=== PATIENT | female | born 1970 | race African-American/Black ===

== ENCOUNTER 2017-10-23 08:30 | Inpatient (IN) | payer OTHER ==
[~2017-10-23] VITALS: Ht 172.7 cm; Wt 127.5 kg
[2017-10-23] MEDS ORDERED: LOSARTAN POTASS50 MG ORAL (08:42)
[2017-10-23] MEDS ORDERED: Isovue-370 150ml vial INJ PRN (09:15)
[2017-10-23 09:28] LABS: BASOPHILS % (AUTO) 0.9 % (0.0-2.0); EOSINOPHILS % (AUTO) 0.8 % (0.0-3.0); HEMATOCRIT 36.8 % (37.0-47.0); HEMOGLOBIN 12.4 G/DL (12.0-16.0); LYMPHOCYTES % (AUTO) 16.1 % (20.0-45.0); MEAN CORPUSCULAR VOLUME 85 FL (80-99); MONOCYTES % (AUTO) 8.7 % (1.0-10.0); NEUTROPHILS % (AUTO) 73.5 % (45.0-75.0); PLATELET COUNT 237 K/UL (150-450); RED BLOOD COUNT 4.35 M/UL (4.20-5.40); WHITE BLOOD COUNT 7.6 K/UL (4.8-10.8)
[2017-10-23] MEDS ORDERED: Aspirin Baby 81mg ORAL ONE (09:30)
--- NOTE | 2017-10-23 09:39 | Emergency Room Report ---
History of Present Illness General Chief Complaint: Chest Pain Source: Patient Present Illness HPI Patient is a 47-year-old female who presented after increased chest discomfort as well as difficulty breathing. Patient gradual onset of symptoms over the past 2 days. Patient reports having increased dizziness as well as decreased exercise tolerance. The patient states that she had been put on control pills. Patient denies being smoker. She reported having some previous right- sided lower extremity swelling which had since resolved. The patient denies any vomiting or diarrhea. She denies any fever. Allergies: Coded Allergies: No Known Allergies (Unverified , 10/23/17) Patient History Past Medical History: see triage record Last Menstrual Period: 10/09/17 Now: No Reviewed Nursing Documentation: PMH: Agreed; PSxH: Agreed Nursing Documentation-PMH Hx Hypertension: Yes Review of Systems All Other Systems: negative except mentioned in HPI Physical Exam Vital Signs Date Time Temp Pulse Resp B/P (MAP) Pulse Ox O2 Delivery O2 Flow Rate FiO2 10/23/17 08:40 98.2 121 24 145/84 87 Room Air 98.2 10/23/17 08:45 2.0 Sp02 EP Interpretation: reviewed, normal General Appearance: normal inspection, well appearing, no apparent distress, alert, GCS 15, non-toxic Head: atraumatic ENT: normal ENT inspection, hearing grossly normal, normal voice Neck: normal inspection, full range of motion, supple, no bony tend Respiratory: normal inspection, lungs clear, normal breath sounds, no respiratory distress, no retraction, no wheezing Cardiovascular #1: regular rate, rhythm, no edema Gastrointestinal: normal inspection, normal bowel sounds, non tender, soft, no guarding, no hernia Genitourinary: no CVA tenderness Musculoskeletal: normal inspection, back normal, normal range of motion Neurologic: normal inspection, alert, oriented x3, responsive, conference center coordinator III-XII nml as tested, speech normal Psychiatric: normal inspection, judgement/insight normal, mood/affect normal Skin: normal inspection, normal color, no rash Medical Decision Making Diagnostic Impression: Primary Impression: Pulmonary embolism ER Course patient presented for chest pain.Differential diagnosis included but was not limited to acute coronary syndrome, pulmonary embolism, pneumonia, aortic dissection, shingles, pneumothorax, aortic dissection, esophageal rupture, pericarditis. Given the patient's oral contraceptive use as well as pleuritic- type chest pain patient will be evaluated for pulmonary embolism with CTA. EKG interpreted by me showed sinus tachycardia with a rate of [address] or T wave change. The rhythm strip showed normal sinus rhythm with a rate of 98 without PVCS or ectopy. The patient was given aspirin.The patient was started on heparin drip. A CTA of the chest read by radiology showed bilateral submassive pulmonary embolism. The echocardiogram 2-D the showed normal left ventricular chamber size with ejection fraction 60-65% noted some pericardial or pleural effusion the right cardiac chamber sizes was within normal limitsMina Faulkner was contacted for inpatient management due to complexity of medical condition. Labs Test 10/23/17 09:06 White Blood Count 7.6 K/UL (4.8-10.8) Red Blood Count 4.35 M/UL (4.20-5.40) Hemoglobin 12.4 G/DL (12.0-16.0) Hematocrit 36.8 % (37.0-47.0) Mean Corpuscular Volume 85 FL (80-99) Mean Corpuscular Hemoglobin 28.6 PG (27.0-31.0) Mean Corpuscular Hemoglobin Concent 33.8 G/DL (32.0-36.0) Red Cell Distribution Width 12.0 % (11.6-14.8) Platelet Count 237 K/UL (150-450) Mean Platelet Volume 6.6 FL (6.5-10.1) Neutrophils (%) (Auto) 73.5 % (45.0-75.0) Lymphocytes (%) (Auto) 16.1 % (20.0-45.0) Monocytes (%) (Auto) 8.7 % (1.0-10.0) Eosinophils (%) (Auto) 0.8 % (0.0-3.0) Basophils (%) (Auto) 0.9 % (0.0-2.0) EKG Diagnostic Results Rate: normal Rhythm: NSR ST Segments: no acute changes Last Vital Signs Date Time Temp Pulse Resp B/P (MAP) Pulse Ox O2 Delivery O2 Flow Rate FiO2 10/23/17 08:45 Nasal Cannula 2.0 10/23/17 08:40 98.2 121 24 145/84 87 98.2 Status: unchanged Disposition: ADMITTED INPATIENT Condition: Serious Referrals: NON PHYSICIAN (PCP) Gabriel Bedoya MD October 23, 2017 09:39
[2017-10-23 09:45] LABS: ANION GAP 10 mmol/L (5-15); BLOOD UREA NITROGEN 10 mg/dL (7-18); CALCIUM 8.5 MG/DL (8.5-10.1); CARBON DIOXIDE 24 MMOL/L (21-32); CHLORIDE 105 MMOL/L (98-107); CREATININE 0.9 MG/DL (0.55-1.30); POTASSIUM 3.8 MMOL/L (3.5-5.1); SODIUM 139 MMOL/L (136-145)
[2017-10-23 09:56] LABS: ALANINE AMINOTRANSFERASE 35 U/L (12-78); ALBUMIN 3.2 G/DL (3.4-5.0); ALBUMIN/GLOBULIN RATIO 0.7 (1.0-2.7); ALKALINE PHOSPHATASE 44 U/L (46-116); ASPARTATE AMINO TRANSFERASE 19 U/L (15-37); BILIRUBIN,TOTAL 0.3 MG/DL (0.2-1.0); CREATINE KINASE 64 U/L (26-308)
[2017-10-23 10:00] VITALS: BP 129/80
--- NOTE | 2017-10-23 11:12 | Diagnostic Imaging Report ---
Indication: Shortness of breath Technique: One view of the chest Comparison: none Findings: Heart is borderline enlarged. Lungs and pleural spaces are clear Impression: Borderline cardiomegaly. No acute process
[2017-10-23 12:00] VITALS: BP 132/99
[2017-10-23] MEDS ORDERED: Heparin 25,000u/D5W 500ml 500 ML IV SCH ×3 (12:00→14:53)
[2017-10-23] MEDS ORDERED: Heparin 5000 units/ml inj IV ONE ×2 (12:00→21:00)
[2017-10-23] MEDS ORDERED: Miralax 17gm pkt ORAL PRN (13:15)
[2017-10-23] MEDS ORDERED: LORazepam Inj 2mg/ml 1ml IV PRN (13:15)
[2017-10-23] MEDS ORDERED: Zolpidem 5mg tab ORAL PRN (13:15)
[2017-10-23] MEDS ORDERED: Mylanta II UD 30ml ORAL PRN (13:15)
[2017-10-23 14:00] VITALS: BP 142/86
--- NOTE | 2017-10-23 14:58 | Diagnostic Imaging Report ---
ndication: Reason For Exam: PAIN Technique: IV administration nonionic contrast. Spiral acquisitions obtained from the lung bases to the lung apices. Multiplanar and 3-D reconstructions were generated. Total dose length product 1425.11 mGycm. CTDIvol(s) 40.83,46.71 mGy. Dose reduction achieved using automated exposure control Comparison: none Findings: There are bilateral pulmonary emboli. On the right, clot is seen in the distal main pulmonary artery and extends into the main upper and lower lobe branches as well as well into multiple segmental branches. On the left, clot is seen within the superior segmental branch of the upper lobe pulmonary artery, and in the main trunk and multiple basilar segmental branches of the lower lobe pulmonary artery. The main pulmonary artery is ectatic but not frankly dilated. The left ventricular to right ventricular ratio is greater than one. There is mild left ventricular muscular hypertrophy. There is no evidence of thoracic aortic aneurysm or dissection. 17 mm focus of groundglass opacity is seen centrally in the right lower lobe. Air lungs and pleural spaces otherwise clear. No pericardial effusion. The included portions of the thyroid are unremarkable. No mediastinal or hilar mass or adenopathy. No axillary or chest wall mass or adenopathy. There is evidence of cysts in both breasts.. The bones are unremarkable. Included upper abdominal viscera are unremarkable. Impression: Positive for extensive bilateral pulmonary emboli. Right ventricular to left ventricular diameter ratio of greater than one is suspicious for submassive pulmonary embolus 17 mm focus of groundglass opacity in the right lower lobe. This is nonspecific, could represent a small focus of inflammation or less likely infarct. Neoplasm also a possibility, and follow-up CT in 6-12 months should be considered Probable bilateral breast cysts. Consider further evaluation with mammography and breast ultrasound Critical value finding discussed by phone with Dr. Bedoya in the emergency room at the time of interpretation The CT scanner at [facility] is accredited by the [employer] [place] [employer] and the scans are performed using protocols designed to limit radiation exposure to as low as reasonably achievable to attain images of sufficient resolution adequate for diagnostic evaluation.
[2017-10-23 15:30] VITALS: BP 146/95
--- NOTE | 2017-10-23 16:02 | Cardiology Report ---
APPROVED REPORT EXAM: Two-dimensional and M-mode echocardiogram with Doppler and color Doppler. INDICATION PERICARDIAL DISEASE M-Mode DIMENSIONS IVSd1.3 (0.7-1.1cm)Left Atrium (MM)2.5 (1.6-4.0cm) LVDd3.5 (3.5-5.6cm)Aortic Root3.1 (2.0-3.7cm) PWd1.5 (0.7-1.1cm)Aortic Cusp Exc.2.0 (1.5-2.0cm) LVDs1.6 (2.5-4.0cm) PWs1.6 cm Technically difficult study due to poor acoustical windows.No subcostal views available Normal left ventricular chamber size, systolic function and wall motion. Left ventricular ejection fraction estimated to be 60-65%. No evidence of left ventricular hypertrophy. No evidence of pericardial or pleural effusion. Right atrail sizes is within normal limits. However the rv free wall is not clearly seen, rv may be slightly enlarged Mild left atrial enlargement by 2D. Focal aortic valve sclerosis with adequate cusp excursion. Thickened mitral valve leaflets with normal excursion. Mild mitral annulus and aortic root calcification. Pulmonic valve not well visualized. Normal tricuspid valve structure. IVC is not obtainable. A color flow and spectral Doppler study was performed and revealed: No aortic regurgitation. No mitral regurgitation. Mitral diastolic velocities suggest reduced left ventricular relaxation c/w diastolic dysfunction grade 1. Trace tricuspid regurgitation. Tricuspid systolic velocities suggests peak right ventricular systolic pressure of 31 mmHg Pulmonic regurgitation present.
--- NOTE | 2017-10-23 18:46 | Cardiology Progress Note ---
Assessment/Plan Assessment/Plan [id number] couamdin vs noac depending on insurance company coverage venousdupelx abn trop likey related to PE Objective Last 24 Hour Vital Signs Date Time Temp Pulse Resp B/P (MAP) Pulse Ox O2 Delivery O2 Flow Rate FiO2 10/23/17 16:00 96 10/23/17 15:30 98.2 93 21 142/86 100 Nasal Cannula 2.0 98.2 10/23/17 15:30 97.9 98 16 146/95 97 Nasal Cannula 2.0 97.9 10/23/17 14:00 98.2 93 21 142/86 100 Nasal Cannula 2.0 98.2 10/23/17 12:00 98.2 93 21 132/99 100 Nasal Cannula 2.0 98.2 10/23/17 10:00 98.2 94 22 129/80 100 Nasal Cannula 2.0 98.2 10/23/17 08:45 Nasal Cannula 2.0 10/23/17 08:40 98.2 121 24 145/84 87 Room Air 98.2 Laboratory Tests Test 10/23/17 09:06 10/23/17 09:35 10/23/17 12:30 White Blood Count 7.6 K/UL (4.8-10.8) Red Blood Count 4.35 M/UL (4.20-5.40) Hemoglobin 12.4 G/DL (12.0-16.0) Hematocrit 36.8 % (37.0-47.0) L Mean Corpuscular Volume 85 FL (80-99) Mean Corpuscular Hemoglobin 28.6 PG (27.0-31.0) Mean Corpuscular Hemoglobin Concent 33.8 G/DL (32.0-36.0) Red Cell Distribution Width 12.0 % (11.6-14.8) Platelet Count 237 K/UL (150-450) Mean Platelet Volume 6.6 FL (6.5-10.1) Neutrophils (%) (Auto) 73.5 % (45.0-75.0) Lymphocytes (%) (Auto) 16.1 % (20.0-45.0) L Monocytes (%) (Auto) 8.7 % (1.0-10.0) Eosinophils (%) (Auto) 0.8 % (0.0-3.0) Basophils (%) (Auto) 0.9 % (0.0-2.0) D-Dimer 19.06 mg/L FEU (0.00-0.49) H Sodium Level 139 MMOL/L (136-145) Potassium Level 3.8 MMOL/L (3.5-5.1) Chloride Level 105 MMOL/L (98-107) Carbon Dioxide Level 24 MMOL/L (21-32) Anion Gap 10 mmol/L (5-15) Blood Urea Nitrogen 10 mg/dL (7-18) Creatinine 0.9 MG/DL (0.55-1.30) Estimat Glomerular Filtration Rate > 60 mL/min (>60) Glucose Level 112 MG/DL (74-106) H Calcium Level 8.5 MG/DL (8.5-10.1) Total Bilirubin 0.3 MG/DL (0.2-1.0) Aspartate Amino Transf (AST/SGOT) 19 U/L (15-37) Alanine Aminotransferase (ALT/SGPT) 35 U/L (12-78) Alkaline Phosphatase 44 U/L (46-116) L Total Creatine Kinase 64 U/L (26-308) Creatine Kinase MB 2.0 NG/ML (0.0-3.6) Creatine Kinase MB Relative Index 3.1 Troponin I 0.527 ng/mL (0.000-0.056) Pro-B-Type Natriuretic Peptide 428 pg/mL (0-125) H Total Protein 7.8 G/DL (6.4-8.2) Albumin 3.2 G/DL (3.4-5.0) L Globulin 4.6 g/dL Albumin/Globulin Ratio 0.7 (1.0-2.7) L Lipase 133 U/L (73-393) Urine HCG, Qualitative Negative (NEGATIVE) Urine Opiates Screen Negative (NEGATIVE) Urine Barbiturates Screen Negative (NEGATIVE) Phencyclidine (PCP) Screen Negative (NEGATIVE) Urine Amphetamines Screen Negative (NEGATIVE) Urine Benzodiazepines Screen Negative (NEGATIVE) Urine Cocaine Screen Negative (NEGATIVE) Urine Marijuana (THC) Screen Negative (NEGATIVE) Activated Partial Thromboplast Time 69 SEC (23-33) H Edward Mireles MD October 23, 2017 18:46
[2017-10-23 20:00] VITALS: BP 146/95
[2017-10-23 20:00] LABS: BASOPHILS % (AUTO) 1.4 % (0.0-2.0); EOSINOPHILS % (AUTO) 1.3 % (0.0-3.0); HEMATOCRIT 38.7 % (37.0-47.0); HEMOGLOBIN 12.7 G/DL (12.0-16.0); LYMPHOCYTES % (AUTO) 27.2 % (20.0-45.0); MEAN CORPUSCULAR VOLUME 84 FL (80-99); MONOCYTES % (AUTO) 7.8 % (1.0-10.0); NEUTROPHILS % (AUTO) 62.4 % (45.0-75.0); PLATELET COUNT 243 K/UL (150-450); RED CELL DISTRIBUTION WIDTH 11.8 % (11.6-14.8); WHITE BLOOD COUNT 8.6 K/UL (4.8-10.8)
--- NOTE | 2017-10-23 20:00 | Consultation ---
DATE OF CONSULTATION: 10/23/2017 CARDIOLOGY CONSULTATION CONSULTING PHYSICIAN: Edward Mireles M.D. REFERRING PHYSICIAN: Yoladna Faulkner M.D. REASON FOR REFERRAL: Pulmonary embolism. HISTORY OF PRESENT ILLNESS: This is a young female, 47 years old, who has a history of obesity. The patient was started on some oral contraceptives for regulation of her menses back in September 2017. Over the past two to three days, she has noted increasing shortness of breath with exertion and eventually some sensation of the caving in discomfort in the chest for the past day or so. She finally presented to the hospital because her symptoms got worse and she was admitted to the hospital. This consultation was subsequently requested. She is comfortable at the present time. Does not have any PND or orthopnea, although she does have obstructive sleep apnea. She has not been using her CPAP on a regular basis. She does wake up because of that, but that is a chronic issue for her. She uses one pillow. There is no dizziness or lightheadedness on standing. No heart pounding or palpitations. PAST MEDICAL HISTORY: Positive for history of obesity and history of high blood pressure. 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 Basically, she has never had heart attack. No cancer, stroke, hepatitis, tuberculosis, asthma, or emphysema. No ulcers. No kidney problems, liver problems, thyroid problems, anemia, arthritis, HIV, AIDS, or any blood clots previously. ALLERGIES: She is not allergic to any medications. SOCIAL HISTORY: She drinks wine on a regular basis. She does not smoke and does not use drugs. 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 REVIEW OF SYSTEMS: GASTROINTESTINAL: Negative. GENITOURINARY: Negative. PULMONARY: Negative. CONSTITUTIONAL: Negative. NEUROLOGIC: Numbness and tingling sensation in her hands and feet when she got really short of breath today. PHYSICAL EXAMINATION: GENERAL: Shows to be obese middle-aged female, in no respiratory distress. NECK: Supple. No jugular venous distention. LUNGS: Clear to auscultation and percussion. CARDIAC: S1 is normal. S2 is normal. Regular rhythm. No heaves. No thrills. No gallops noted. ABDOMEN: Soft. Obese. Positive bowel sounds. Nontender. EXTREMITIES: There is no edema. No tenderness or pain and no redness or swelling. NEUROLOGIC: She is awake and responsive. LABORATORY AND DIAGNOSTIC DATA: White count 7.6, hemoglobin 12.4, and a platelet count of 237,000. Sodium is 139, potassium 3.8, chloride 105, bicarbonate 24, BUN of 10, creatinine 0.9, glucose of 112, and calcium is 8.5. Normal troponin at 0.527. ProBNP is 428. Albumin of 3.2. Imaging is performed. Chest x-ray showed basically borderline cardiomegaly. No acute processes . A CT scan of the chest and pulmonary angiogram was performed. She has bilateral pulmonary emboli. On the right, clot is seen in the distal main pulmonary artery with extension into the main upper and lower lobe branches as well as into the multiple segmentals. On the left, clot is seen within the superior branch of the upper pulmonary artery and the main trunk and bibasilar segmental branches in lower lobes. The main pulmonary artery is ectatic, but not dilated. The left ventricular to right ventricular ratio is greater than 1. There is mild left ventricular muscular hypertrophy. Ground glass opacity is seen essentially in the right lower lobe. Lung pleural space otherwise clear. No pleural or pericardial effusion. The patient has had the telemetry monitoring showing sinus rhythm. EKG shows sinus rhythm with borderline right axis deviation and no significant ST-T wave abnormality being noted. ASSESSMENT AND PLAN: 1. Multiple pulmonary emboli. 2. Shortness of breath secondary to above. 3. Obesity. 4. Recent history of oral contraceptive use. This patient is admitted to the hospital. The patient has already been started on anticoagulation with the mainstay of her treatment at the present time. An echocardiogram has been performed, which I reviewed. LV function appears to be normal. The right ventricle may be slightly enlarged, although not clearly seen. The right atrium appears to be within normal limits. The right ventricular free wall is not clearly seen either and there no significant valve regurgitation, and PA pressures at 31. So, it is possible that she had pulmonary emboli extensive although does not appear to have any acute compromise in hemodynamics or LV function at this time. Continue anticoagulation. She may need to be switched to NOAC if her insurance company does cover, otherwise Coumadin needs to be started. A venous duplex study of the lower extremities maybe helpful just to document if she has any extensive amount of thrombosis in her legs. Edward Mireles M.D. DR: CRISTELA JOB#: [id number] CC:
[2017-10-23] MEDS: Heparin 25,000u/D5W 500ml 500 ML IV SCH (20:48)
[2017-10-24] VITALS: BP 146/87
[2017-10-24] MEDS: Heparin 25,000u/D5W 500ml 500 ML IV SCH ×3 (02:06→14:42)
[2017-10-24 04:00] VITALS: BP 110/75
[2017-10-24 04:37] LABS: BASOPHILS % (AUTO) 0.7 % (0.0-2.0); EOSINOPHILS % (AUTO) 1.8 % (0.0-3.0); HEMOGLOBIN 12.3 G/DL (12.0-16.0); LYMPHOCYTES % (AUTO) 29.7 % (20.0-45.0); MEAN CORPUSCULAR VOLUME 85 FL (80-99); MONOCYTES % (AUTO) 9.8 % (1.0-10.0); NEUTROPHILS % (AUTO) 58.1 % (45.0-75.0); PLATELET COUNT 247 K/UL (150-450); RED BLOOD COUNT 4.37 M/UL (4.20-5.40); RED CELL DISTRIBUTION WIDTH 11.7 % (11.6-14.8)
[2017-10-24 06:06] LABS: ALANINE AMINOTRANSFERASE 31 U/L (12-78); ALBUMIN 2.8 G/DL (3.4-5.0); ALBUMIN/GLOBULIN RATIO 0.6 (1.0-2.7); ALKALINE PHOSPHATASE 43 U/L (46-116); ANION GAP 10 mmol/L (5-15); ASPARTATE AMINO TRANSFERASE 18 U/L (15-37); BILIRUBIN,TOTAL 0.4 MG/DL (0.2-1.0); BLOOD UREA NITROGEN 10 mg/dL (7-18); CALCIUM 8.3 MG/DL (8.5-10.1); CARBON DIOXIDE 24 MMOL/L (21-32); CHLORIDE 104 MMOL/L (98-107); CHOLESTEROL 180 MG/DL (< 200); CREATININE 0.8 MG/DL (0.55-1.30); HDL CHOLESTEROL 87 MG/DL (40-60); SODIUM 138 MMOL/L (136-145); TRIGLYCERIDES 73 MG/DL (30-150)
[2017-10-24 08:00] VITALS: BP 110/79
--- NOTE | 2017-10-24 10:26 | History and Physical ---
History of Present Illness General Date patient seen: October 24, 2017 Reason for Hospitalization: Chest Pain Present Illness HPI 47-year-old female with hx of hypertension and contraceptive use presented to ER with CC of increased chest discomfort as well as difficulty breathing. Patient gradual onset of symptoms over the past 2 days. The patient states that she had been put on control pills. . She reported having some previous right-sided lower extremity swelling which had since resolved. She was diagnosed to have acute pulmonary embolism and admitted to [facility] for further treatment. Allergies: Coded Allergies: CASHEW NUT (Verified Allergy, Unknown, itchy, 10/23/17) [place] (Verified Allergy, Unknown, itchy, 10/23/17) Medication History Scheduled Losartan Potassium* (Losartan Potassium*), 50 MG ORAL DAILY, (Reported) Patient History Healthcare decision maker N Resuscitation status Full Code Advanced Directive on File Past Medical/Surgical History Past Medical/Surgical History: (1) Contraceptive use (2) Hypertension Review of Systems All Other Systems: negative except mentioned in HPI Physical Exam General Appearance: WD/WN Lines, tubes and drains: peripheral HEENT: normocephalic, atraumatic Neck: non-tender, normal alignment Respiratory/Chest: chest wall non-tender, lungs clear Breasts: no masses Cardiovascular/Chest: normal peripheral pulses Abdomen: normal bowel sounds, non tender Genitourinary/Rectal: normal genital exam, heme negative stool Extremities: normal range of motion Last 24 Hour Vital Signs Date Time Temp Pulse Resp B/P (MAP) Pulse Ox O2 Delivery O2 Flow Rate FiO2 10/24/17 08:00 98.8 89 18 110/79 97 Nasal Cannula 2.0 98.8 10/24/17 08:00 87 10/24/17 04:00 98.8 85 22 110/75 97 Nasal Cannula 2.0 98.8 10/24/17 04:00 95 10/24/17 00:00 98.8 89 22 146/87 97 Nasal Cannula 2.0 98.8 10/24/17 00:00 97 10/23/17 20:00 99.5 98 19 146/95 97 Nasal Cannula 2.0 99.5 10/23/17 16:00 96 10/23/17 15:30 98.2 93 21 142/86 100 Nasal Cannula 2.0 98.2 10/23/17 15:30 97.9 98 16 146/95 97 Nasal Cannula 2.0 97.9 10/23/17 14:00 98.2 93 21 142/86 100 Nasal Cannula 2.0 98.2 10/23/17 12:00 98.2 93 21 132/99 100 Nasal Cannula 2.0 98.2 Intake and Output 10/23/17 10/24/17 19:00 07:00 Intake Total 323.579 ml 547.5 ml Output Total 60 ml Balance 263.579 ml 547.5 ml Intake Oral 250 ml 300 ml IV Total 73.579 ml 247.5 ml Output Urine Total 60 ml # Voids 1 2 Laboratory Tests Test 10/23/17 12:30 10/23/17 19:45 10/24/17 03:15 Activated Partial Thromboplast Time 69 SEC (23-33) H 43 SEC (23-33) H 103 SEC (23-33) H White Blood Count 8.6 K/UL (4.8-10.8) 8.0 K/UL (4.8-10.8) Red Blood Count 4.60 M/UL (4.20-5.40) 4.37 M/UL (4.20-5.40) Hemoglobin 12.7 G/DL (12.0-16.0) 12.3 G/DL (12.0-16.0) Hematocrit 38.7 % (37.0-47.0) 37.0 % (37.0-47.0) Mean Corpuscular Volume 84 FL (80-99) 85 FL (80-99) Mean Corpuscular Hemoglobin 27.6 PG (27.0-31.0) 28.2 PG (27.0-31.0) Mean Corpuscular Hemoglobin Concent 32.9 G/DL (32.0-36.0) 33.3 G/DL (32.0-36.0) Red Cell Distribution Width 11.8 % (11.6-14.8) 11.7 % (11.6-14.8) Platelet Count 243 K/UL (150-450) 247 K/UL (150-450) Mean Platelet Volume 6.3 FL (6.5-10.1) L 6.6 FL (6.5-10.1) Neutrophils (%) (Auto) 62.4 % (45.0-75.0) 58.1 % (45.0-75.0) Lymphocytes (%) (Auto) 27.2 % (20.0-45.0) 29.7 % (20.0-45.0) Monocytes (%) (Auto) 7.8 % (1.0-10.0) 9.8 % (1.0-10.0) Eosinophils (%) (Auto) 1.3 % (0.0-3.0) 1.8 % (0.0-3.0) Basophils (%) (Auto) 1.4 % (0.0-2.0) 0.7 % (0.0-2.0) Sodium Level 138 MMOL/L (136-145) Potassium Level 4.0 MMOL/L (3.5-5.1) Chloride Level 104 MMOL/L (98-107) Carbon Dioxide Level 24 MMOL/L (21-32) Anion Gap 10 mmol/L (5-15) Blood Urea Nitrogen 10 mg/dL (7-18) Creatinine 0.8 MG/DL (0.55-1.30) Estimat Glomerular Filtration Rate > 60 mL/min (>60) Glucose Level 111 MG/DL (74-106) H Calcium Level 8.3 MG/DL (8.5-10.1) L Total Bilirubin 0.4 MG/DL (0.2-1.0) Aspartate Amino Transf (AST/SGOT) 18 U/L (15-37) Alanine Aminotransferase (ALT/SGPT) 31 U/L (12-78) Alkaline Phosphatase 43 U/L (46-116) L Troponin I 0.103 ng/mL (0.000-0.056) Total Protein 7.2 G/DL (6.4-8.2) Albumin 2.8 G/DL (3.4-5.0) L Globulin 4.4 g/dL Albumin/Globulin Ratio 0.6 (1.0-2.7) L Triglycerides Level 73 MG/DL (30-150) Cholesterol Level 180 MG/DL (< 200) LDL Cholesterol 88 mg/dL (<100) HDL Cholesterol 87 MG/DL (40-60) H Cholesterol/HDL Ratio 2.1 (3.3-4.4) L Height (Feet): 5 Height (Inches): 8.00 Weight (Pounds): 281 Medications Current Medications Medications (Trade) Dose Ordered Sig/Teo Route PRN Reason Start Time Stop Time Status Last Admin Dose Admin Acetaminophen (Tylenol) 650 mg Q4H PRN ORAL fever 10/23/17 13:15 11/22/17 13:14 Al Hydroxide/Mg Hydroxide (Mylanta II) 30 ml Q6H PRN ORAL dyspepsia 10/23/17 13:15 11/22/17 13:14 Dextrose (Dextrose 50%) 25 ml STAT PRN IV Hypoglycemia 10/23/17 13:15 11/22/17 13:14 Dextrose (Dextrose 50%) 50 ml STAT PRN IV Hypoglycemia 10/23/17 13:30 11/22/17 13:29 Heparin Sodium/ Dextrose 500 ml @ 49.532 mls/ hr adjust per protocol IV 10/24/17 05:45 11/22/17 20:59 10/24/17 05:47 Iopamidol (Isovue-370 150ml) 150 ml NOW PRN INJ Radiology Procedure 10/23/17 09:15 10/25/17 09:02 Lorazepam (Ativan 2mg/ml 1ml) 0.5 mg Q4H PRN IV For Anxiety 10/23/17 13:15 10/30/17 13:14 Ondansetron HCl (Zofran) 4 mg Q6H PRN IVP Nausea & Vomiting 10/23/17 13:15 11/22/17 13:14 Polyethylene Glycol (Miralax) 17 gm HSPRN PRN ORAL Constipation 10/23/17 13:15 11/22/17 13:14 Zolpidem Tartrate (Ambien) 5 mg HSPRN PRN ORAL Insomnia 10/23/17 13:15 10/30/17 13:14 Assessment/Plan Problem List: (1) Pulmonary embolism ICD Codes: I26.99 - Other pulmonary embolism without acute cor pulmonale SNOMED: 16732029 (2) Hypertension ICD Codes: I10 - Essential (primary) hypertension SNOMED: 74088846 (3) Contraceptive use ICD Codes: Z30.40 - Encounter for surveillance of contraceptives, unspecified SNOMED: 02151064, 181601179, [id number] Assessment/Plan iv heparin hematology to see check ptt daily monitor BP Yolanda Faulkner MD October 24, 2017 10:26
[2017-10-24 12:00] VITALS: BP 127/82
--- NOTE | 2017-10-24 13:19 | Diagnostic Imaging Report ---
APPROVED REPORT CPT Code: 36470 Present Symptoms Comments: BILATERAL LEGS PAIN. BILATERAL: Imaging reveals a patent deep venous system bilaterally. There is no evidence of thrombus within the femoral, popliteal or tibial segments. The greater saphenous veins are also within normal limits. Doppler indicates normal spontaneous flow within these segments.
[2017-10-24 16:30] VITALS: BP 137/84
--- NOTE | 2017-10-24 16:50 | Cardiology Report ---
APPROVED REPORT EKG Measurement Heart [id number] Sinus tachycardia Otherwise normal ECG
[2017-10-24 20:00] VITALS: BP 143/83
--- NOTE | 2017-10-24 20:03 | Cardiology Progress Note ---
Assessment/Plan Assessment/Plan 1. Multiple pulmonary emboli. 2. Shortness of breath secondary to above. 3. Obesity. 4. Recent history of oral contraceptive use. duplex neg trop down trend sat well anticoagulation with heparin start Coumadin as i am not sure her insurance provides coverage for noacs Subjective Cardiovascular: Denies: chest pain, lightheadedness, palpitations Respiratory: Denies: shortness of breath Gastrointestinal/Abdominal: Denies: abdominal pain Genitourinary: Denies: burning Objective Last 24 Hour Vital Signs Date Time Temp Pulse Resp B/P (MAP) Pulse Ox O2 Delivery O2 Flow Rate FiO2 10/24/17 16:30 98.5 81 18 137/84 100 Room Air 98.5 10/24/17 15:27 87 10/24/17 12:00 105 10/24/17 12:00 97.9 95 20 127/82 97 Nasal Cannula 3.0 97.9 10/24/17 08:00 98.8 89 18 110/79 97 Nasal Cannula 2.0 98.8 10/24/17 08:00 87 10/24/17 04:00 98.8 85 22 110/75 97 Nasal Cannula 2.0 98.8 10/24/17 04:00 95 10/24/17 00:00 98.8 89 22 146/87 97 Nasal Cannula 2.0 98.8 10/24/17 00:00 97 General Appearance: alert Neck: non-tender Cardiovascular: normal rate, regular rhythm Respiratory/Chest: lungs clear, normal breath sounds Abdomen: normal bowel sounds, non tender, soft Extremities: no swelling Intake and Output 10/23/17 10/24/17 19:00 07:00 Intake Total 323.579 ml 547.5 ml Output Total 60 ml Balance 263.579 ml 547.5 ml Intake Oral 250 ml 300 ml IV Total 73.579 ml 247.5 ml Output Urine Total 60 ml # Voids 1 2 Laboratory Tests Test 10/24/17 03:15 10/24/17 12:00 10/24/17 17:30 White Blood Count 8.0 K/UL (4.8-10.8) Red Blood Count 4.37 M/UL (4.20-5.40) Hemoglobin 12.3 G/DL (12.0-16.0) Hematocrit 37.0 % (37.0-47.0) Mean Corpuscular Volume 85 FL (80-99) Mean Corpuscular Hemoglobin 28.2 PG (27.0-31.0) Mean Corpuscular Hemoglobin Concent 33.3 G/DL (32.0-36.0) Red Cell Distribution Width 11.7 % (11.6-14.8) Platelet Count 247 K/UL (150-450) Mean Platelet Volume 6.6 FL (6.5-10.1) Neutrophils (%) (Auto) 58.1 % (45.0-75.0) Lymphocytes (%) (Auto) 29.7 % (20.0-45.0) Monocytes (%) (Auto) 9.8 % (1.0-10.0) Eosinophils (%) (Auto) 1.8 % (0.0-3.0) Basophils (%) (Auto) 0.7 % (0.0-2.0) Activated Partial Thromboplast Time 103 SEC (23-33) H 71 SEC (23-33) H Sodium Level 138 MMOL/L (136-145) Potassium Level 4.0 MMOL/L (3.5-5.1) Chloride Level 104 MMOL/L (98-107) Carbon Dioxide Level 24 MMOL/L (21-32) Anion Gap 10 mmol/L (5-15) Blood Urea Nitrogen 10 mg/dL (7-18) Creatinine 0.8 MG/DL (0.55-1.30) Estimat Glomerular Filtration Rate > 60 mL/min (>60) Glucose Level 111 MG/DL (74-106) H Calcium Level 8.3 MG/DL (8.5-10.1) L Total Bilirubin 0.4 MG/DL (0.2-1.0) Aspartate Amino Transf (AST/SGOT) 18 U/L (15-37) Alanine Aminotransferase (ALT/SGPT) 31 U/L (12-78) Alkaline Phosphatase 43 U/L (46-116) L Troponin I 0.103 ng/mL (0.000-0.056) Total Protein 7.2 G/DL (6.4-8.2) Albumin 2.8 G/DL (3.4-5.0) L Globulin 4.4 g/dL Albumin/Globulin Ratio 0.6 (1.0-2.7) L Triglycerides Level 73 MG/DL (30-150) Cholesterol Level 180 MG/DL (< 200) LDL Cholesterol 88 mg/dL (<100) HDL Cholesterol 87 MG/DL (40-60) H Cholesterol/HDL Ratio 2.1 (3.3-4.4) L Protein C Activity Pending Protein S Antigen Pending Free Protein S Pending Anti-Thrombin III Activity Pending Factor V Mutation Pending Prothrombin Gene Mutation Pending Prothrombin Gene Shared Component Pending Edward Mireles MD October 24, 2017 20:03
[2017-10-25] VITALS: BP 145/81
[2017-10-25] MEDS: Heparin 25,000u/D5W 500ml 500 ML IV SCH ×2 (00:21→10:57)
--- NOTE | 2017-10-25 03:30 | Consultation ---
DATE OF CONSULTATION: 10/24/2017 NOTE: POOR AUDIO HEMATOLOGY/ONCOLOGY CONSULTATION CONSULTING PHYSICIAN: Marino Marsh M.D. REQUESTING PHYSICIAN: Yolanda Faulkner M.D. REASON FOR CONSULTATION: Evaluation of pulmonary embolism in the setting of contraceptive use. IDENTIFICATION DATA: Dear Dr. Faulkner, This is a pleasant 47-year-old female with history of obesity and some oral contraceptive use dating back in September 2017. Over the last 2 to 3 days, increasing shortness of breath, some sensation of getting discomfort in the chest area, presented to the hospital as the symptoms are worse, consultation requested by Cardiology and Hematology Service. She has not been using her CPAP on a regular basis. Hematology service was consulted for further evaluation and treatment. PAST MEDICAL HISTORY: Obesity, high blood pressure, arthritis, emphysema. ALLERGIES: No known drug allergies. SOCIAL HISTORY: Drinks on a regular basis. No alcohol, tobacco, or illicit drug use. REVIEW OF SYSTEMS: CONSTITUTIONAL: No fevers, chills, or night sweats. SKIN: No rash, bumps, or itching. HEENT: No headache, hearing or vision changes. BREASTS: No lumps, pain, or discharge. PULMONARY: No cough, sputum, or shortness of breath. GASTROINTESTINAL: No nausea, vomiting, or diarrhea. GENITOURINARY: No dysuria, frequency, or urgency. MUSCULOSKELETAL: No joint swelling, muscle pain, or trauma. PHYSICAL EXAMINATION: VITAL SIGNS: Reviewed. GENERAL: No acute distress. LUNGS: Decreased breath sounds. CARDIOVASCULAR: Regular rate. No S3 or S4. ABDOMEN: Soft, nontender, and nondistended. EXTREMITIES: No cyanosis, swelling, or edema noted. LABORATORY DATA: WBC 7.6, hemoglobin 12.4, hematocrit 36, and platelet count 137,000. BUN 10 and creatinine 0.9. Albumin 2.2. Imaging reviewed. Chest x-ray shows cardiomegaly. CT scan of the chest, pulmonary angiogram performed, bilateral pulmonary emboli noted. pulmonary artery main trunk at the basilar segmental branches as noted above. The patient had telemetry noted. ASSESSMENT AND RECOMMENDATIONS: 1. Multiple pulmonary embolism bilaterally. He has been evaluated by Cardiology Service. Echocardiogram performed , appears to be within normal limits not clearly seen. PA pressures at 31. Does not have hemodynamic compromise. Currently, on heparin drip. The patient may need to be switched to if insurance covers it, otherwise Coumadin via Dr. Mireles. In addition, obtain hypercoagulable disorder. 2. obese female as well as the use of estrogen. 3. Hypertension. Systolic blood pressure goal less than 130. 4. Contraceptive use in the past. Recommended not to use anymore in the setting of pulmonary embolism and thromboembolic event. 5. Coagulopathy likely due to heparin use. I appreciate the consultation. Marino Marsh M.D. DR: EDITH JOB#: [id number] CC:
[2017-10-25 04:00] VITALS: BP 150/81
[2017-10-25 04:30] LABS: BASOPHILS % (AUTO) 0.7 % (0.0-2.0); EOSINOPHILS % (AUTO) 2.6 % (0.0-3.0); HEMATOCRIT 32.2 % (37.0-47.0); HEMOGLOBIN 10.9 G/DL (12.0-16.0); LYMPHOCYTES % (AUTO) 33.3 % (20.0-45.0); MEAN CORPUSCULAR VOLUME 85 FL (80-99); NEUTROPHILS % (AUTO) 53.5 % (45.0-75.0); PLATELET COUNT 232 K/UL (150-450); RED BLOOD COUNT 3.81 M/UL (4.20-5.40); RED CELL DISTRIBUTION WIDTH 11.8 % (11.6-14.8); WHITE BLOOD COUNT 5.4 K/UL (4.8-10.8)
[2017-10-25 04:45] LABS: ALANINE AMINOTRANSFERASE 29 U/L (12-78); ALBUMIN 2.6 G/DL (3.4-5.0); ALBUMIN/GLOBULIN RATIO 0.6 (1.0-2.7); ALKALINE PHOSPHATASE 42 U/L (46-116); ANION GAP 8 mmol/L (5-15); ASPARTATE AMINO TRANSFERASE 16 U/L (15-37); BILIRUBIN,TOTAL 0.2 MG/DL (0.2-1.0); BLOOD UREA NITROGEN 7 mg/dL (7-18); CARBON DIOXIDE 26 MMOL/L (21-32); CHLORIDE 104 MMOL/L (98-107); CREATININE 0.7 MG/DL (0.55-1.30); INR 0.9 (0.9-1.1); POTASSIUM 3.9 MMOL/L (3.5-5.1); SODIUM 138 MMOL/L (136-145)
--- NOTE | 2017-10-25 07:46 | General Progress Note ---
Assessment/Plan Assessment/Plan 1. Pulmonary embolism, submassive bilaterally. He has been evaluated by Cardiology Service. 2D echo has been reviewed, right atrial pressures are good, seen by [id number], no hemodynamic compromise. --> Currently, on heparin drip. --> The patient may need to be switched to po anticoagulant if insurance covers it, otherwise Coumadin with inr check --> In addition, obtain hypercoagulable disorder, has been ordered --> no further contraceptives recommended 2. Anemia likely related to hemodilution from heparin --> closely monitor 3. Hypertension. Systolic blood pressure goal less than 130. 4. Contraceptive use in the past. Recommended not to use anymore in the setting of pulmonary embolism and thromboembolic event. 5. Coagulopathy likely due to heparin use. Subjective Date patient seen: October 25, 2017 Constitutional: Denies: no symptoms, chills, diaphoresis, fever, malaise, weakness, other HEENT: Denies: no symptoms, eye pain, blurred vision, tearing, double vision, ear pain, ear discharge, nose pain, nose congestion, throat pain, throat swelling, mouth pain, mouth swelling, other Cardiovascular: Denies: no symptoms, chest pain, edema, irregular heart rate, lightheadedness, palpitations, syncope, other Gastrointestinal/Abdominal: Denies: no symptoms, abdomen distended, abdominal pain, black stools, tarry stools, blood in stool, constipated, diarrhea, difficulty swallowing, nausea, poor appetite, poor fluid intake, rectal bleeding , vomiting, other Genitourinary: Denies: no symptoms, burning, discharge, frequency, flank pain, hematuria, incontinence, pain, urgency, other Neurologic/Psychiatric: Denies: no symptoms, anxiety, depressed, emotional problems, headache, numbness, paresthesia, pre-existing deficit, seizure, tingling, tremors, weakness, other Hematologic/Lymphatic: Denies: no symptoms, anemia, easy bleeding, easy bruising, other Allergies: Coded Allergies: CASHEW NUT (Verified Allergy, Unknown, itchy, 10/23/17) [place] (Verified Allergy, Unknown, itchy, 10/23/17) Subjective on heparin gtt, doing well Objective Last 24 Hour Vital Signs Date Time Temp Pulse Resp B/P (MAP) Pulse Ox O2 Delivery O2 Flow Rate FiO2 10/25/17 04:00 98.2 85 20 150/81 100 Nasal Cannula 2.0 98.2 10/25/17 04:00 85 10/25/17 00:00 98.2 85 20 145/81 100 Nasal Cannula 2.0 98.2 10/24/17 20:00 89 10/24/17 20:00 98.6 89 20 143/83 100 Nasal Cannula 2.0 98.6 10/24/17 16:30 98.5 81 18 137/84 100 Room Air 98.5 10/24/17 15:27 87 10/24/17 12:00 105 10/24/17 12:00 97.9 95 20 127/82 97 Nasal Cannula 3.0 97.9 10/24/17 08:00 98.8 89 18 110/79 97 Nasal Cannula 2.0 98.8 10/24/17 08:00 87 Intake and Output 10/24/17 10/25/17 19:00 07:00 Intake Total 938.128 ml 960.532 ml Balance 938.128 ml 960.532 ml Intake Oral 600 ml 400 ml IV Total 338.128 ml 560.532 ml # Voids 7 4 # Bowel Movements 1 Laboratory Tests 10/24/17 12:00: Activated Partial Thromboplast Time 71H 10/24/17 17:30: Protein C Activity [Pending], Protein S Antigen [Pending], Free Protein S [ Pending], Anti-Thrombin III Activity [Pending], Factor V Mutation [Pending], Prothrombin Gene Mutation [Pending], Prothrombin Gene Shared Component [Pending] 10/25/17 03:40: Activated Partial Thromboplast Time 84H, White Blood Count 5.4, Red Blood Count 3.81L, Hemoglobin 10.9L, Hematocrit 32.2L, Mean Corpuscular Volume 85, Mean Corpuscular Hemoglobin 28.8, Mean Corpuscular Hemoglobin Concent 34.0, Red Cell Distribution Width 11.8, Platelet Count 232, Mean Platelet Volume 7.1, Neutrophils (%) (Auto) 53.5, Lymphocytes (%) (Auto) 33.3, Monocytes (%) (Auto) 10.0, Eosinophils (%) (Auto) 2.6, Basophils (%) (Auto) 0.7, Prothrombin Time 9.9 , Prothromb Time International Ratio 0.9, Sodium Level 138, Potassium Level 3.9 , Chloride Level 104, Carbon Dioxide Level 26, Anion Gap 8, Blood Urea Nitrogen 7, Creatinine 0.7, Estimat Glomerular Filtration Rate > 60, Glucose Level 106, Calcium Level 8.0L, Phosphorus Level 4.0, Magnesium Level 2.1, Total Bilirubin 0.2, Aspartate Amino Transf (AST/SGOT) 16, Alanine Aminotransferase (ALT/SGPT) 29, Alkaline Phosphatase 42L, Total Protein 7.0, Albumin 2.6L, Globulin 4.4, Albumin/Globulin Ratio 0.6L Height (Feet): 5 Height (Inches): 8.00 Weight (Pounds): 281 General Appearance: alert EENT: normal ENT inspection Neck: normal alignment Cardiovascular: regular rhythm Respiratory/Chest: normal breath sounds Abdomen: soft Extremities: non-tender Edema: 1+ Leg (L), 1+ Leg (R) Edema: mild edema Neurologic: alert Marino Marsh MD October 25, 2017 07:46
[2017-10-25 08:00] VITALS: BP 129/79
--- NOTE | 2017-10-25 11:19 | Pulmonology Progress Note ---
Assessment/Plan Problems: (1) Pulmonary embolism (2) Hypertension (3) Contraceptive use Assessment/Plan no new complains troponin lower continue heparin drip for now stable for transfer probably in am. Subjective ROS Limited/Unobtainable: No Constitutional: Reports: no symptoms HEENT: Repors: no symptoms Respiratory: Reports: no symptoms Allergies: Coded Allergies: CASHEW NUT (Verified Allergy, Unknown, itchy, 10/23/17) [place] (Verified Allergy, Unknown, itchy, 10/23/17) Objective Last 24 Hour Vital Signs Date Time Temp Pulse Resp B/P (MAP) Pulse Ox O2 Delivery O2 Flow Rate FiO2 10/25/17 10:40 98.2 10/25/17 09:41 98.2 10/25/17 04:00 98.2 85 20 150/81 100 Nasal Cannula 2.0 98.2 10/25/17 04:00 85 10/25/17 00:00 98.2 85 20 145/81 100 Nasal Cannula 2.0 98.2 10/24/17 20:00 89 10/24/17 20:00 98.6 89 20 143/83 100 Nasal Cannula 2.0 98.6 10/24/17 16:30 98.5 81 18 137/84 100 Room Air 98.5 10/24/17 15:27 87 10/24/17 12:00 105 10/24/17 12:00 97.9 95 20 127/82 97 Nasal Cannula 3.0 97.9 Intake and Output 10/24/17 10/25/17 19:00 07:00 Intake Total 938.128 ml 960.532 ml Balance 938.128 ml 960.532 ml Intake Oral 600 ml 400 ml IV Total 338.128 ml 560.532 ml # Voids 7 4 # Bowel Movements 1 General Appearance: WD/WN HEENT: normocephalic, anicteric Respiratory/Chest: chest wall non-tender, lungs clear Breasts: no masses Cardiovascular: normal rate Abdomen: normal bowel sounds, no organomegaly Genitourinary: normal external genitalia Extremities: no clubbing Skin: no rash Laboratory Tests 10/24/17 12:00: Activated Partial Thromboplast Time 71H 10/24/17 17:30: Protein C Activity [Pending], Protein S Antigen [Pending], Free Protein S [ Pending], Anti-Thrombin III Activity [Pending], Factor V Mutation [Pending], Prothrombin Gene Mutation [Pending], Prothrombin Gene Shared Component [Pending] 10/25/17 03:40: Activated Partial Thromboplast Time 84H, White Blood Count 5.4, Red Blood Count 3.81L, Hemoglobin 10.9L, Hematocrit 32.2L, Mean Corpuscular Volume 85, Mean Corpuscular Hemoglobin 28.8, Mean Corpuscular Hemoglobin Concent 34.0, Red Cell Distribution Width 11.8, Platelet Count 232, Mean Platelet Volume 7.1, Neutrophils (%) (Auto) 53.5, Lymphocytes (%) (Auto) 33.3, Monocytes (%) (Auto) 10.0, Eosinophils (%) (Auto) 2.6, Basophils (%) (Auto) 0.7, Prothrombin Time 9.9 , Prothromb Time International Ratio 0.9, Sodium Level 138, Potassium Level 3.9 , Chloride Level 104, Carbon Dioxide Level 26, Anion Gap 8, Blood Urea Nitrogen 7, Creatinine 0.7, Estimat Glomerular Filtration Rate > 60, Glucose Level 106, Calcium Level 8.0L, Phosphorus Level 4.0, Magnesium Level 2.1, Total Bilirubin 0.2, Aspartate Amino Transf (AST/SGOT) 16, Alanine Aminotransferase (ALT/SGPT) 29, Alkaline Phosphatase 42L, Total Protein 7.0, Albumin 2.6L, Globulin 4.4, Albumin/Globulin Ratio 0.6L Current Medications Medications (Trade) Dose Ordered Sig/Teo Route PRN Reason Start Time Stop Time Status Last Admin Dose Admin Acetaminophen (Tylenol) 650 mg Q4H PRN ORAL fever 10/23/17 13:15 11/22/17 13:14 10/25/17 09:41 Al Hydroxide/Mg Hydroxide (Mylanta II) 30 ml Q6H PRN ORAL dyspepsia 10/23/17 13:15 11/22/17 13:14 Dextrose (Dextrose 50%) 25 ml STAT PRN IV Hypoglycemia 10/23/17 13:15 11/22/17 13:14 Dextrose (Dextrose 50%) 50 ml STAT PRN IV Hypoglycemia 10/23/17 13:30 11/22/17 13:29 Heparin Sodium/ Dextrose 500 ml @ 49.532 mls/ hr adjust per protocol IV 10/24/17 05:45 11/22/17 20:59 10/25/17 10:57 Lorazepam (Ativan 2mg/ml 1ml) 0.5 mg Q4H PRN IV For Anxiety 10/23/17 13:15 10/30/17 13:14 Ondansetron HCl (Zofran) 4 mg Q6H PRN IVP Nausea & Vomiting 10/23/17 13:15 11/22/17 13:14 Polyethylene Glycol (Miralax) 17 gm HSPRN PRN ORAL Constipation 10/23/17 13:15 11/22/17 13:14 Warfarin Sodium (Coumadin per pharmacy) 1 ea DAILY PRN MISC Per rx protocol 10/24/17 20:15 11/23/17 20:14 Warfarin Sodium (Coumadin) 5 mg COUMADIN ORAL 10/25/17 17:00 10/30/17 16:59 Zolpidem Tartrate (Ambien) 5 mg HSPRN PRN ORAL Insomnia 10/23/17 13:15 10/30/17 13:14 Yolanda Faulkner MD October 25, 2017 11:19
[2017-10-25 12:00] VITALS: BP 137/81
--- NOTE | 2017-10-25 15:09 | Cardiology Progress Note ---
Assessment/Plan Assessment/Plan 1. Multiple pulmonary emboli. 2. Shortness of breath secondary to above. 3. Obesity. 4. Recent history of oral contraceptive use. duplex neg trop down trend sat well anticoagulation with heparin continue Coumadin as i am not sure her insurance provides coverage for noacs Subjective Cardiovascular: Denies: chest pain, lightheadedness, palpitations Respiratory: Denies: cough, shortness of breath, SOB with excertion Gastrointestinal/Abdominal: Denies: abdominal pain Genitourinary: Denies: burning Objective Last 24 Hour Vital Signs Date Time Temp Pulse Resp B/P (MAP) Pulse Ox O2 Delivery O2 Flow Rate FiO2 10/25/17 10:40 98.2 10/25/17 09:41 98.2 10/25/17 08:00 84 10/25/17 08:00 97.9 89 20 129/79 100 Nasal Cannula 2.0 97.9 10/25/17 04:00 98.2 85 20 150/81 100 Nasal Cannula 2.0 98.2 10/25/17 04:00 85 10/25/17 00:00 98.2 85 20 145/81 100 Nasal Cannula 2.0 98.2 10/24/17 20:00 89 10/24/17 20:00 98.6 89 20 143/83 100 Nasal Cannula 2.0 98.6 10/24/17 16:30 98.5 81 18 137/84 100 Room Air 98.5 10/24/17 15:27 87 General Appearance: no apparent distress, alert Neck: supple Cardiovascular: normal rate, regular rhythm Respiratory/Chest: lungs clear, normal breath sounds Abdomen: normal bowel sounds, non tender, soft Extremities: no swelling Intake and Output 10/24/17 10/25/17 19:00 07:00 Intake Total 938.128 ml 960.532 ml Balance 938.128 ml 960.532 ml Intake Oral 600 ml 400 ml IV Total 338.128 ml 560.532 ml # Voids 7 4 # Bowel Movements 1 Laboratory Tests Test 10/24/17 17:30 10/25/17 03:40 Protein C Activity Pending Protein S Antigen Pending Free Protein S Pending Anti-Thrombin III Activity Pending Factor V Mutation Pending Prothrombin Gene Mutation Pending Prothrombin Gene Shared Component Pending White Blood Count 5.4 K/UL (4.8-10.8) Red Blood Count 3.81 M/UL (4.20-5.40) L Hemoglobin 10.9 G/DL (12.0-16.0) L Hematocrit 32.2 % (37.0-47.0) L Mean Corpuscular Volume 85 FL (80-99) Mean Corpuscular Hemoglobin 28.8 PG (27.0-31.0) Mean Corpuscular Hemoglobin Concent 34.0 G/DL (32.0-36.0) Red Cell Distribution Width 11.8 % (11.6-14.8) Platelet Count 232 K/UL (150-450) Mean Platelet Volume 7.1 FL (6.5-10.1) Neutrophils (%) (Auto) 53.5 % (45.0-75.0) Lymphocytes (%) (Auto) 33.3 % (20.0-45.0) Monocytes (%) (Auto) 10.0 % (1.0-10.0) Eosinophils (%) (Auto) 2.6 % (0.0-3.0) Basophils (%) (Auto) 0.7 % (0.0-2.0) Prothrombin Time 9.9 SEC (9.30-11.50) Prothromb Time International Ratio 0.9 (0.9-1.1) Activated Partial Thromboplast Time 84 SEC (23-33) H Sodium Level 138 MMOL/L (136-145) Potassium Level 3.9 MMOL/L (3.5-5.1) Chloride Level 104 MMOL/L (98-107) Carbon Dioxide Level 26 MMOL/L (21-32) Anion Gap 8 mmol/L (5-15) Blood Urea Nitrogen 7 mg/dL (7-18) Creatinine 0.7 MG/DL (0.55-1.30) Estimat Glomerular Filtration Rate > 60 mL/min (>60) Glucose Level 106 MG/DL (74-106) Calcium Level 8.0 MG/DL (8.5-10.1) L Phosphorus Level 4.0 MG/DL (2.5-4.9) Magnesium Level 2.1 MG/DL (1.8-2.4) Total Bilirubin 0.2 MG/DL (0.2-1.0) Aspartate Amino Transf (AST/SGOT) 16 U/L (15-37) Alanine Aminotransferase (ALT/SGPT) 29 U/L (12-78) Alkaline Phosphatase 42 U/L (46-116) L Total Protein 7.0 G/DL (6.4-8.2) Albumin 2.6 G/DL (3.4-5.0) L Globulin 4.4 g/dL Albumin/Globulin Ratio 0.6 (1.0-2.7) L Edward Mireles MD October 25, 2017 15:09
[2017-10-25 16:00] VITALS: BP 145/75
[2017-10-25] MEDS ORDERED: Warfarin Sodium 5mg ORAL SCH (17:00)
[2017-10-25 20:00] VITALS: BP 148/91
--- NOTE | 2017-10-26 11:39 | Discharge Summary ---
Discharge Summary Discharge Summary _ DATE OF ADMISSION: 10/23/2017 DATE OF DISCHARGE: 10/25/2017 CONSULTANTS: Dr. Edward Marsh BRIEF HOSPITAL COURSE: Patient is a 49-year-old female, with history of hypertension and contraceptive use, presented to ER complaining of increased chest discomfort as well as difficulty breathing. She had gradual onset of symptoms for the past 2 days. She was on control pills. Denied smoking. She reported right-sided lower extremity swelling. There was no fever, no vomiting or diarrhea. On evaluation at ED, she was tachycardic, O2 saturation was 87% on room air. EKG showed sinus tachycardia at the rate of [address] or T wave changes. She was given aspirin. Chest CTA showed positive bilateral pulmonary emboli. She was started on heparin drip. She was then admitted to the hospital. Echocardiogram showed normal left ventricular function, EF 60-65%. She had massive pulmonary emboli, however, did not appear to have any acute compromise in hemodynamics or LV function. Venous duplex of the lower extremity was negative for DVT bilaterally. She was eventually transferred to a contracted hospital. FINAL DIAGNOSES: Multiple pulmonary emboli, submassive bilaterally Oral contraceptive use Anemia Hypertension Coagulopathy, due to heparin use Obesity DISPOSITION: Patient was transferred to [facility]. I have been assigned to dictate discharge summary on this account, and I was not involved in the patient's management. Lisa Cardona NP October 26, 2017 11:39
== END 2017-10-25 20:30 | disposition short-term general hospital (02) | DRG 176 ==
LOC: EMR 08:56 → EDBEDREQSVC 12:05 → EDBEDREQ 12:05 → 2W 12:47 → EDBEDREQ 12:51 → 2W 19:33
DX: I26.99 Other pulmonary embolism without acute cor pulmonale (principal); D68.9 Coagulation defect, unspecified; T45.515A Adverse effect of anticoagulants, initial encounter; D64.9 Anemia, unspecified; I10 Essential (primary) hypertension; E66.9 Obesity, unspecified; Z79.3 Long term (current) use of hormonal contraceptives; M19.072 Primary osteoarthritis, left ankle and foot; M19.071 Primary osteoarthritis, right ankle and foot
CPT/HCPCS: 36415; 71045; 71275; 80053; 80061; 80307; 81025; 81241; 82140; 82550; 82553; 83690; 83735; 83880; 84100; 84484; 85025; 85300; 85303; 85305; 85379; 85610; 85730; 93005; 93306; 93970; 99285

== ENCOUNTER 2017-11-05 01:01 | Inpatient (IN) | payer OTHER ==
[~2017-11-05] VITALS: Ht 172.7 cm; Wt 122.5 kg
[2017-11-05] VITALS (8 sets, daily range): BP systolic 124–157; BP diastolic 64–95
[~2017-11-05 01:01] MED LIST: LOSARTAN POTASS50 MG ORAL
[2017-11-05] MEDS ORDERED: ELIQUIS5 MG PO (01:13)
--- NOTE | 2017-11-05 01:26 | Emergency Room Report ---
History of Present Illness General Chief Complaint: Chest Pain Source: Patient Present Illness HPI Patient presents with complaints of midsternal chest pain She initially felt some discomfort at around 11:00 this morning However this evening when trying to go to sleep she had heaviness 4 out of 10 midsternal And presents to the ER Patient is on Eliquis since Sunday After being discharged from [email or web address] Patient had been admitted here to the hospital with home and ambles him in transfer to the contracted facility Denies any change with position denies any shortness of breath Allergies: Coded Allergies: NO KNOWN DRUG ALLERGIES (Verified Allergy, Unknown, 11/05/17) Patient History Past Medical History: see triage record Pertinent Family History: none Last Menstrual Period: 10/22/17 Now: No Reviewed Nursing Documentation: PMH: Agreed; PSxH: Agreed Nursing Documentation-PMH Past Medical History: No History, Except For Hx Hypertension: Yes Hx Cancer: No Hx Gastrointestinal Problems: No Hx Neurological Problems: No Review of Systems All Other Systems: negative except mentioned in HPI Physical Exam Vital Signs Date Time Temp Pulse Resp B/P (MAP) Pulse Ox O2 Delivery O2 Flow Rate FiO2 11/05/17 01:06 98.9 74 16 137/82 97 Room Air 99.0 Sp02 EP Interpretation: reviewed, normal General Appearance: well appearing, no apparent distress Head: normocephalic, atraumatic Eyes: bilateral eye PERRL, bilateral eye EOMI ENT: hearing grossly normal, normal pharynx, TMs + canals normal, uvula midline Neck: full range of motion, supple, no meningismus, no bony tend Respiratory: lungs clear, normal breath sounds, no rhonchi, no respiratory distress, no retraction, no accessory muscle use Cardiovascular #1: normal peripheral pulses, regular rate, rhythm, no edema, no gallop, no JVD, no murmur Gastrointestinal: normal bowel sounds, non tender, soft, no mass, no organomegaly, non-distended, no guarding, no hernia, no pulsatile mass, no rebound Genitourinary: no CVA tenderness Musculoskeletal: normal inspection Neurologic: oriented x3, responsive, manager house III-XII nml as tested, motor strength/ tone normal, sensory intact Psychiatric: mood/affect normal Skin: normal color, no rash, warm/dry, palpation normal Lymphatic: normal inspection, no adenopathy Medical Decision Making Diagnostic Impression: Primary Impression: ACS (acute coronary syndrome) ER Course Patient is a fairly complex patient with multiple differential to consideration including but not limited to cardiac cardiopulmonary and vascular emergencies Patient's initial blood work and EKG are appropriate Patient has appropriate pain management Given the description of the pain and clinical evaluation patient is admitted for further intervention and care CBC normal Chem 17 normal Troponin negative EKG Diagnostic Results Rate: normal Rhythm: NSR ST Segments: no acute changes Rhythm Strip Diag. Results EP Interpretation: yes Rate: 77 Rhythm: NSR, no PVC's, no ectopy Chest X-Ray Diagnostic Results Chest X-Ray Diagnostic Results : Chest X-Ray Ordered: Yes # of Views/Limited/Complete: 1 View Indication: Chest Pain EP Interpretation: Yes Interpretation: no consolidation, no effusion, no pneumothorax Impression: No acute disease Electronically Signed by: Elie Garza DO Last Vital Signs Date Time Temp Pulse Resp B/P (MAP) Pulse Ox O2 Delivery O2 Flow Rate FiO2 11/05/17 01:06 98.9 74 16 137/82 97 Room Air 99.0 Status: improved Disposition: ADMITTED INPATIENT Condition: Serious Scripts Losartan Potassium* (COZAAR*) 50 Mg Tablet 50 MG ORAL DAILY for 30 Days, TAB Prov: Yolanda Faulkner MD 11/06/17 Lansoprazole* (LANSOPRAZOLE*) 30 Mg Capsule.dr 30 MG ORAL DAILY for 30 Days, CAP Prov: Yolanda Faulkner MD 11/06/17 Elie Garza DO Nov 05, 2017 01:26
[2017-11-05] MEDS ORDERED: Mylanta II UD 30ml ORAL ONE (01:30)
[2017-11-05] MEDS ORDERED: Dicyclomine HCl 10mg/5ml oral soln ORAL ONE (01:30)
[2017-11-05 02:10] LABS: BASOPHILS % (AUTO) 1.2 % (0.0-2.0); EOSINOPHILS % (AUTO) 2.6 % (0.0-3.0); HEMATOCRIT 31.1 % (37.0-47.0); HEMOGLOBIN 10.1 G/DL (12.0-16.0); MEAN CORPUSCULAR VOLUME 84 FL (80-99); MONOCYTES % (AUTO) 9.9 % (1.0-10.0); NEUTROPHILS % (AUTO) 51.3 % (45.0-75.0); PLATELET COUNT 483 K/UL (150-450); RED BLOOD COUNT 3.72 M/UL (4.20-5.40); RED CELL DISTRIBUTION WIDTH 11.5 % (11.6-14.8); WHITE BLOOD COUNT 6.8 K/UL (4.8-10.8)
[2017-11-05 02:16] LABS: ANION GAP 6 mmol/L (5-15); BLOOD UREA NITROGEN 14 mg/dL (7-18); CALCIUM 8.5 MG/DL (8.5-10.1); CARBON DIOXIDE 29 MMOL/L (21-32); CHLORIDE 104 MMOL/L (98-107); CREATININE 0.9 MG/DL (0.55-1.30); POTASSIUM 3.6 MMOL/L (3.5-5.1); SODIUM 139 MMOL/L (136-145)
[2017-11-05 02:18] LABS: INR 0.9 (0.9-1.1)
[2017-11-05 02:29] LABS: ALANINE AMINOTRANSFERASE 43 U/L (12-78); ALBUMIN 3.1 G/DL (3.4-5.0); ALBUMIN/GLOBULIN RATIO 0.7 (1.0-2.7); ALKALINE PHOSPHATASE 68 U/L (46-116); ASPARTATE AMINO TRANSFERASE 15 U/L (15-37); BILIRUBIN,TOTAL 0.1 MG/DL (0.2-1.0); CKMB 0.6 NG/ML (0.0-3.6); CREATINE KINASE 58 U/L (26-308)
[2017-11-05] MEDS ORDERED: LORazepam Inj 2mg/ml 1ml IV PRN (06:30)
[2017-11-05] MEDS ORDERED: Zolpidem 5mg tab ORAL PRN (06:30)
[2017-11-05] MEDS ORDERED: Mylanta II UD 30ml ORAL PRN (06:30)
[2017-11-05] MEDS ORDERED: Miralax 17gm pkt ORAL PRN (06:30)
[2017-11-05] MEDS: Eliquis 2.5mg tablet ORAL SCH ×2 (09:31→18:08)
--- NOTE | 2017-11-05 12:16 | Diagnostic Imaging Report ---
Indication: Chest pain Technique: One view of the chest Comparison: 10/23/2017 Findings: The heart is upper limits normal in size. Lungs and pleural spaces are clear. No significant interim change Impression: No acute process
--- NOTE | 2017-11-05 12:20 | History and Physical ---
History of Present Illness General Date patient seen: Nov 05, 2017 Reason for Hospitalization: Chest Pain Present Illness HPI 47 year old female with hx of HTN and recent PE, on Apixiban, brought in by paramedics for acute onset of chest pain, which was pressure like. Allergies: Coded Allergies: NO KNOWN DRUG ALLERGIES (Verified Allergy, Unknown, 11/05/17) Medication History Scheduled Apixaban (Eliquis), 5 MG PO BID, (Reported) Losartan Potassium* (Losartan Potassium*), 50 MG ORAL DAILY, (Reported) Patient History Healthcare decision maker Resuscitation status Full Code Advanced Directive on File Past Medical/Surgical History Past Medical/Surgical History: (1) Hypertension (2) Pulmonary embolism Review of Systems All Other Systems: negative except mentioned in HPI Physical Exam General Appearance: WD/WN Lines, tubes and drains: peripheral HEENT: normocephalic, atraumatic Neck: non-tender, normal alignment Respiratory/Chest: chest wall non-tender, lungs clear Breasts: no masses Cardiovascular/Chest: normal peripheral pulses Abdomen: normal bowel sounds, non tender Extremities: normal range of motion, non-tender Skin Exam: normal pigmentation Last 24 Hour Vital Signs Date Time Temp Pulse Resp B/P (MAP) Pulse Ox O2 Delivery O2 Flow Rate FiO2 11/05/17 08:07 98.2 80 18 157/95 98 Room Air 98.2 11/05/17 08:02 82 11/05/17 07:50 98.7 83 21 136/80 95 Room Air 99.0 11/05/17 06:04 77 14 124/64 99 Room Air 11/05/17 04:00 75 15 143/73 100 Room Air 11/05/17 01:21 74 16 Room Air 11/05/17 01:21 99.0 74 16 137/82 97 Room Air 99.0 11/05/17 01:06 98.9 74 16 137/82 97 Room Air 99.0 Intake and Output 11/04/17 11/05/17 19:00 07:00 Intake Total 0 ml Balance 0 ml Intake Oral 0 ml Laboratory Tests Test 11/05/17 01:40 11/05/17 09:00 White Blood Count 6.8 K/UL (4.8-10.8) Red Blood Count 3.72 M/UL (4.20-5.40) L Hemoglobin 10.1 G/DL (12.0-16.0) L Hematocrit 31.1 % (37.0-47.0) L Mean Corpuscular Volume 84 FL (80-99) Mean Corpuscular Hemoglobin 27.2 PG (27.0-31.0) Mean Corpuscular Hemoglobin Concent 32.6 G/DL (32.0-36.0) Red Cell Distribution Width 11.5 % (11.6-14.8) L Platelet Count 483 K/UL (150-450) H Mean Platelet Volume 6.1 FL (6.5-10.1) L Neutrophils (%) (Auto) 51.3 % (45.0-75.0) Lymphocytes (%) (Auto) 35.0 % (20.0-45.0) Monocytes (%) (Auto) 9.9 % (1.0-10.0) Eosinophils (%) (Auto) 2.6 % (0.0-3.0) Basophils (%) (Auto) 1.2 % (0.0-2.0) Prothrombin Time 9.9 SEC (9.30-11.50) Prothromb Time International Ratio 0.9 (0.9-1.1) Activated Partial Thromboplast Time 26 SEC (23-33) Sodium Level 139 MMOL/L (136-145) Potassium Level 3.6 MMOL/L (3.5-5.1) Chloride Level 104 MMOL/L (98-107) Carbon Dioxide Level 29 MMOL/L (21-32) Anion Gap 6 mmol/L (5-15) Blood Urea Nitrogen 14 mg/dL (7-18) Creatinine 0.9 MG/DL (0.55-1.30) Estimat Glomerular Filtration Rate > 60 mL/min (>60) Glucose Level 109 MG/DL (74-106) H Calcium Level 8.5 MG/DL (8.5-10.1) Total Bilirubin 0.1 MG/DL (0.2-1.0) L Aspartate Amino Transf (AST/SGOT) 15 U/L (15-37) Alanine Aminotransferase (ALT/SGPT) 43 U/L (12-78) Alkaline Phosphatase 68 U/L (46-116) Total Creatine Kinase 58 U/L (26-308) Creatine Kinase MB 0.6 NG/ML (0.0-3.6) Creatine Kinase MB Relative Index 1.0 Troponin I 0.000 ng/mL (0.000-0.056) 0.002 ng/mL (0.000-0.056) Pro-B-Type Natriuretic Peptide 14 pg/mL (0-125) Total Protein 7.3 G/DL (6.4-8.2) Albumin 3.1 G/DL (3.4-5.0) L Globulin 4.2 g/dL Albumin/Globulin Ratio 0.7 (1.0-2.7) L Lipase 241 U/L (73-393) Height (Feet): 5 Height (Inches): 8.00 Weight (Pounds): 270 Medications Current Medications Medications (Trade) Dose Ordered Sig/Teo Route PRN Reason Start Time Stop Time Status Last Admin Dose Admin Acetaminophen (Tylenol) 650 mg Q4H PRN ORAL fever 11/05/17 06:30 12/05/17 06:29 Al Hydroxide/Mg Hydroxide (Mylanta II) 30 ml Q6H PRN ORAL dyspepsia 11/05/17 06:30 12/05/17 06:29 Apixaban (Eliquis) 5 mg BID ORAL 11/05/17 09:00 12/05/17 08:59 11/05/17 09:31 Dextrose (Dextrose 50%) STAT PRN IV Hypoglycemia 11/05/17 06:30 12/05/17 06:29 Lorazepam (Ativan 2mg/ml 1ml) 0.5 mg Q4H PRN IV For Anxiety 11/05/17 06:30 11/12/17 06:29 Losartan Potassium (Cozaar) 50 mg DAILY ORAL 11/06/17 09:00 12/06/17 08:59 Ondansetron HCl (Zofran) 4 mg Q6H PRN IVP Nausea & Vomiting 11/05/17 06:30 12/05/17 06:29 Polyethylene Glycol (Miralax) 17 gm HSPRN PRN ORAL Constipation 11/05/17 06:30 12/05/17 06:29 Zolpidem Tartrate (Ambien) 5 mg HSPRN PRN ORAL Insomnia 11/05/17 06:30 11/12/17 06:29 Assessment/Plan Problem List: (1) ACS (acute coronary syndrome) ICD Codes: I24.9 - Acute ischemic heart disease, unspecified SNOMED: 792343731 (2) Pulmonary embolism ICD Codes: I26.99 - Other pulmonary embolism without acute cor pulmonale SNOMED: 60870504 (3) Hypertension ICD Codes: I10 - Essential (primary) hypertension SNOMED: 61243849 Assessment/Plan serial ekg, troponin cardiology to see echo symptomatic treatment Yolanda Faulkner MD Nov 05, 2017 12:20
--- NOTE | 2017-11-05 18:22 | Consultation ---
History of Present Illness General Date patient seen: Nov 05, 2017 Time patient seen: 18:25 Chief Complaint: Chest Pain Present Illness HPI 47 year old female with hx of HTN and recent PE, on Apixiban, brought in by paramedics for acute onset of chest pain, which was pressure like. Troponin negative x2, EKG with no ischemia. Currently chest pain resolved and patient tolerating PO. Allergies: Coded Allergies: NO KNOWN DRUG ALLERGIES (Verified Allergy, Unknown, 11/05/17) Medication History Scheduled Apixaban (Eliquis), 5 MG PO BID, (Reported) Losartan Potassium* (Losartan Potassium*), 50 MG ORAL DAILY, (Reported) Patient History Healthcare decision maker Resuscitation status Full Code Advanced Directive on File Review of Systems Constitutional: Reports: no symptoms Eye: Reports: no symptoms ENT: Reports: no symptoms Respiratory: Reports: no symptoms Cardiovascular: Reports: chest pain Gastrointestinal: Reports: no symptoms Genitourinary: Reports: no symptoms Musculoskeletal: Reports: no symptoms Skin: Reports: no symptoms Neurological: Reports: no symptoms Endocrine: Reports: no symptoms Physical Exam General Appearance: no apparent distress Lines, tubes and drains: peripheral HEENT: normocephalic, atraumatic Neck: non-tender Respiratory/Chest: chest wall non-tender Cardiovascular/Chest: normal peripheral pulses, normal rate, regular rhythm Abdomen: normal bowel sounds Extremities: normal range of motion Skin Exam: normal pigmentation 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 Last 24 Hour Vital Signs Date Time Temp Pulse Resp B/P (MAP) Pulse Ox O2 Delivery O2 Flow Rate FiO2 11/05/17 16:23 97.5 82 20 145/79 95 Room Air 97.5 11/05/17 16:00 97.5 82 20 145/79 95 97.5 11/05/17 16:00 81 11/05/17 12:00 77 11/05/17 12:00 97.5 78 20 146/90 97 Room Air 97.5 11/05/17 12:00 97.5 78 20 146/90 97 97.5 11/05/17 08:07 98.2 80 18 157/95 98 Room Air 98.2 11/05/17 08:02 82 11/05/17 07:50 98.7 83 21 136/80 95 Room Air 99.0 11/05/17 06:04 77 14 124/64 99 Room Air 11/05/17 04:00 75 15 143/73 100 Room Air 11/05/17 01:21 74 16 Room Air 11/05/17 01:21 99.0 74 16 137/82 97 Room Air 99.0 11/05/17 01:06 98.9 74 16 137/82 97 Room Air 99.0 Intake and Output 11/04/17 11/05/17 19:00 07:00 Intake Total 0 ml Balance 0 ml Intake Oral 0 ml Laboratory Tests Test 11/05/17 01:40 11/05/17 09:00 White Blood Count 6.8 K/UL (4.8-10.8) Red Blood Count 3.72 M/UL (4.20-5.40) L Hemoglobin 10.1 G/DL (12.0-16.0) L Hematocrit 31.1 % (37.0-47.0) L Mean Corpuscular Volume 84 FL (80-99) Mean Corpuscular Hemoglobin 27.2 PG (27.0-31.0) Mean Corpuscular Hemoglobin Concent 32.6 G/DL (32.0-36.0) Red Cell Distribution Width 11.5 % (11.6-14.8) L Platelet Count 483 K/UL (150-450) H Mean Platelet Volume 6.1 FL (6.5-10.1) L Neutrophils (%) (Auto) 51.3 % (45.0-75.0) Lymphocytes (%) (Auto) 35.0 % (20.0-45.0) Monocytes (%) (Auto) 9.9 % (1.0-10.0) Eosinophils (%) (Auto) 2.6 % (0.0-3.0) Basophils (%) (Auto) 1.2 % (0.0-2.0) Prothrombin Time 9.9 SEC (9.30-11.50) Prothromb Time International Ratio 0.9 (0.9-1.1) Activated Partial Thromboplast Time 26 SEC (23-33) Sodium Level 139 MMOL/L (136-145) Potassium Level 3.6 MMOL/L (3.5-5.1) Chloride Level 104 MMOL/L (98-107) Carbon Dioxide Level 29 MMOL/L (21-32) Anion Gap 6 mmol/L (5-15) Blood Urea Nitrogen 14 mg/dL (7-18) Creatinine 0.9 MG/DL (0.55-1.30) Estimat Glomerular Filtration Rate > 60 mL/min (>60) Glucose Level 109 MG/DL (74-106) H Calcium Level 8.5 MG/DL (8.5-10.1) Total Bilirubin 0.1 MG/DL (0.2-1.0) L Aspartate Amino Transf (AST/SGOT) 15 U/L (15-37) Alanine Aminotransferase (ALT/SGPT) 43 U/L (12-78) Alkaline Phosphatase 68 U/L (46-116) Total Creatine Kinase 58 U/L (26-308) Creatine Kinase MB 0.6 NG/ML (0.0-3.6) Creatine Kinase MB Relative Index 1.0 Troponin I 0.000 ng/mL (0.000-0.056) 0.002 ng/mL (0.000-0.056) Pro-B-Type Natriuretic Peptide 14 pg/mL (0-125) Total Protein 7.3 G/DL (6.4-8.2) Albumin 3.1 G/DL (3.4-5.0) L Globulin 4.2 g/dL Albumin/Globulin Ratio 0.7 (1.0-2.7) L Lipase 241 U/L (73-393) Height (Feet): 5 Height (Inches): 8.00 Weight (Pounds): 270 Medications Current Medications Medications (Trade) Dose Ordered Sig/Teo Route PRN Reason Start Time Stop Time Status Last Admin Dose Admin Acetaminophen (Tylenol) 650 mg Q4H PRN ORAL fever 11/05/17 06:30 12/05/17 06:29 Al Hydroxide/Mg Hydroxide (Mylanta II) 30 ml Q6H PRN ORAL dyspepsia 11/05/17 06:30 12/05/17 06:29 Apixaban (Eliquis) 5 mg BID ORAL 11/05/17 09:00 12/05/17 08:59 11/05/17 18:08 Dextrose (Dextrose 50%) STAT PRN IV Hypoglycemia 11/05/17 06:30 12/05/17 06:29 Lorazepam (Ativan 2mg/ml 1ml) 0.5 mg Q4H PRN IV For Anxiety 11/05/17 06:30 11/12/17 06:29 Losartan Potassium (Cozaar) 50 mg DAILY ORAL 11/06/17 09:00 12/06/17 08:59 Ondansetron HCl (Zofran) 4 mg Q6H PRN IVP Nausea & Vomiting 11/05/17 06:30 12/05/17 06:29 Polyethylene Glycol (Miralax) 17 gm HSPRN PRN ORAL Constipation 11/05/17 06:30 12/05/17 06:29 Zolpidem Tartrate (Ambien) 5 mg HSPRN PRN ORAL Insomnia 11/05/17 06:30 11/12/17 06:29 Assessment/Plan Assessment/Plan Chest pain HTN PE 1) Serial EKG/Troponin 2) Nitro prn chest pain 3) Aspirin 4) Statin 5) Blood pressure control 6) Echocardiogram reviewed - no wall motion abnormalities 7) Outpatient stress test 8) No indication for cardiac cath at this time 9) Patient is anticoagulated with Eliquis, no heparin gtt needed Lavon Keita M.D. Nov 05, 2017 18:22
--- NOTE | 2017-11-05 18:47 | Cardiology Progress Note ---
Assessment/Plan Assessment/Plan pt known to me seen at request fo dr majano atypciaylin cp doubt ischemia repat ekg home in am proton pump inhibitor contiue edilberto Objective Last 24 Hour Vital Signs Date Time Temp Pulse Resp B/P (MAP) Pulse Ox O2 Delivery O2 Flow Rate FiO2 11/05/17 16:23 97.5 82 20 145/79 95 Room Air 97.5 11/05/17 16:00 97.5 82 20 145/79 95 97.5 11/05/17 16:00 81 11/05/17 12:00 77 11/05/17 12:00 97.5 78 20 146/90 97 Room Air 97.5 11/05/17 12:00 97.5 78 20 146/90 97 97.5 11/05/17 08:07 98.2 80 18 157/95 98 Room Air 98.2 11/05/17 08:02 82 11/05/17 07:50 98.7 83 21 136/80 95 Room Air 99.0 11/05/17 06:04 77 14 124/64 99 Room Air 11/05/17 04:00 75 15 143/73 100 Room Air 11/05/17 01:21 74 16 Room Air 11/05/17 01:21 99.0 74 16 137/82 97 Room Air 99.0 11/05/17 01:06 98.9 74 16 137/82 97 Room Air 99.0 Intake and Output 11/04/17 11/05/17 19:00 07:00 Intake Total 0 ml Balance 0 ml Intake Oral 0 ml Laboratory Tests Test 11/05/17 01:40 11/05/17 09:00 White Blood Count 6.8 K/UL (4.8-10.8) Red Blood Count 3.72 M/UL (4.20-5.40) L Hemoglobin 10.1 G/DL (12.0-16.0) L Hematocrit 31.1 % (37.0-47.0) L Mean Corpuscular Volume 84 FL (80-99) Mean Corpuscular Hemoglobin 27.2 PG (27.0-31.0) Mean Corpuscular Hemoglobin Concent 32.6 G/DL (32.0-36.0) Red Cell Distribution Width 11.5 % (11.6-14.8) L Platelet Count 483 K/UL (150-450) H Mean Platelet Volume 6.1 FL (6.5-10.1) L Neutrophils (%) (Auto) 51.3 % (45.0-75.0) Lymphocytes (%) (Auto) 35.0 % (20.0-45.0) Monocytes (%) (Auto) 9.9 % (1.0-10.0) Eosinophils (%) (Auto) 2.6 % (0.0-3.0) Basophils (%) (Auto) 1.2 % (0.0-2.0) Prothrombin Time 9.9 SEC (9.30-11.50) Prothromb Time International Ratio 0.9 (0.9-1.1) Activated Partial Thromboplast Time 26 SEC (23-33) Sodium Level 139 MMOL/L (136-145) Potassium Level 3.6 MMOL/L (3.5-5.1) Chloride Level 104 MMOL/L (98-107) Carbon Dioxide Level 29 MMOL/L (21-32) Anion Gap 6 mmol/L (5-15) Blood Urea Nitrogen 14 mg/dL (7-18) Creatinine 0.9 MG/DL (0.55-1.30) Estimat Glomerular Filtration Rate > 60 mL/min (>60) Glucose Level 109 MG/DL (74-106) H Calcium Level 8.5 MG/DL (8.5-10.1) Total Bilirubin 0.1 MG/DL (0.2-1.0) L Aspartate Amino Transf (AST/SGOT) 15 U/L (15-37) Alanine Aminotransferase (ALT/SGPT) 43 U/L (12-78) Alkaline Phosphatase 68 U/L (46-116) Total Creatine Kinase 58 U/L (26-308) Creatine Kinase MB 0.6 NG/ML (0.0-3.6) Creatine Kinase MB Relative Index 1.0 Troponin I 0.000 ng/mL (0.000-0.056) 0.002 ng/mL (0.000-0.056) Pro-B-Type Natriuretic Peptide 14 pg/mL (0-125) Total Protein 7.3 G/DL (6.4-8.2) Albumin 3.1 G/DL (3.4-5.0) L Globulin 4.2 g/dL Albumin/Globulin Ratio 0.7 (1.0-2.7) L Lipase 241 U/L (73-393) Edward Mireles MD Nov 05, 2017 18:47
[2017-11-06 04:00] VITALS: BP 132/82
[2017-11-06 07:21] LABS: BASOPHILS % (AUTO) 0.7 % (0.0-2.0); EOSINOPHILS % (AUTO) 2.1 % (0.0-3.0); HEMATOCRIT 30.4 % (37.0-47.0); HEMOGLOBIN 10.3 G/DL (12.0-16.0); LYMPHOCYTES % (AUTO) 34.1 % (20.0-45.0); MEAN CORPUSCULAR VOLUME 84 FL (80-99); MONOCYTES % (AUTO) 6.6 % (1.0-10.0); NEUTROPHILS % (AUTO) 56.5 % (45.0-75.0); PLATELET COUNT 458 K/UL (150-450); RED BLOOD COUNT 3.62 M/UL (4.20-5.40); RED CELL DISTRIBUTION WIDTH 11.7 % (11.6-14.8); WHITE BLOOD COUNT 6.8 K/UL (4.8-10.8)
[2017-11-06 07:43] LABS: ALANINE AMINOTRANSFERASE 41 U/L (12-78); ALBUMIN 2.9 G/DL (3.4-5.0); ALBUMIN/GLOBULIN RATIO 0.7 (1.0-2.7); ALKALINE PHOSPHATASE 46 U/L (46-116); ANION GAP 9 mmol/L (5-15); ASPARTATE AMINO TRANSFERASE 14 U/L (15-37); BILIRUBIN,TOTAL 0.2 MG/DL (0.2-1.0); BLOOD UREA NITROGEN 8 mg/dL (7-18); CALCIUM 8.7 MG/DL (8.5-10.1); CARBON DIOXIDE 27 MMOL/L (21-32); CHLORIDE 104 MMOL/L (98-107); CHOLESTEROL 189 MG/DL (< 200); CREATININE 0.7 MG/DL (0.55-1.30); HDL CHOLESTEROL 56 MG/DL (40-60); POTASSIUM 3.8 MMOL/L (3.5-5.1); SODIUM 140 MMOL/L (136-145); TRIGLYCERIDES 111 MG/DL (30-150)
[2017-11-06 08:00] VITALS: BP 131/74
[2017-11-06] MEDS: Eliquis 2.5mg tablet ORAL SCH (08:46)
[2017-11-06] MEDS ORDERED: Losartan 50mg tab ORAL SCH (09:00)
[2017-11-06 12:00] VITALS: BP 119/71
--- NOTE | 2017-11-06 12:42 | Pulmonology Progress Note ---
Assessment/Plan Problems: (1) ACS (acute coronary syndrome) (2) Pulmonary embolism (3) Hypertension Assessment/Plan cardio note appreciated all troponin and ekg negative3 dc home with f/u outpatient management Subjective ROS Limited/Unobtainable: No Constitutional: Reports: no symptoms HEENT: Repors: no symptoms Respiratory: Reports: no symptoms Allergies: Coded Allergies: NO KNOWN DRUG ALLERGIES (Verified Allergy, Unknown, 11/05/17) Objective Last 24 Hour Vital Signs Date Time Temp Pulse Resp B/P (MAP) Pulse Ox O2 Delivery O2 Flow Rate FiO2 11/06/17 08:46 131/74 11/06/17 04:00 91 11/06/17 04:00 97.2 85 17 132/82 97 Room Air 97.2 11/06/17 00:00 90 11/05/17 20:00 88 11/05/17 20:00 98.1 89 18 128/80 94 Room Air 98.1 11/05/17 16:23 97.5 82 20 145/79 95 Room Air 97.5 11/05/17 16:00 97.5 82 20 145/79 95 97.5 11/05/17 16:00 81 Intake and Output 11/05/17 11/06/17 19:00 07:00 Intake Total 500 ml 480 ml Balance 500 ml 480 ml Intake Oral 500 ml 480 ml # Voids 4 1 General Appearance: WD/WN HEENT: normocephalic, atraumatic, anicteric Respiratory/Chest: chest wall non-tender, lungs clear Breasts: no masses Cardiovascular: normal peripheral pulses, normal rate Abdomen: normal bowel sounds, soft, non tender Genitourinary: normal external genitalia Extremities: no clubbing Skin: no rash 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 Laboratory Tests 11/06/17 06:15: White Blood Count 6.8, Red Blood Count 3.62L, Hemoglobin 10.3L, Hematocrit 30.4L , Mean Corpuscular Volume 84, Mean Corpuscular Hemoglobin 28.4, Mean Corpuscular Hemoglobin Concent 33.9, Red Cell Distribution Width 11.7, Platelet Count 458H, Mean Platelet Volume 5.5L, Neutrophils (%) (Auto) 56.5, Lymphocytes (%) (Auto) 34.1, Monocytes (%) (Auto) 6.6, Eosinophils (%) (Auto) 2.1, Basophils (%) (Auto) 0.7, Sodium Level 140, Potassium Level 3.8, Chloride Level 104, Carbon Dioxide Level 27, Anion Gap 9, Blood Urea Nitrogen 8, Creatinine 0.7 , Estimat Glomerular Filtration Rate > 60, Glucose Level 92, Calcium Level 8.7, Total Bilirubin 0.2, Aspartate Amino Transf (AST/SGOT) 14L, Alanine Aminotransferase (ALT/SGPT) 41, Alkaline Phosphatase 46, Troponin I 0.004, Total Protein 7.2, Albumin 2.9L, Globulin 4.3, Albumin/Globulin Ratio 0.7L, Triglycerides Level 111, Cholesterol Level 189, LDL Cholesterol 112H, HDL Cholesterol 56, Cholesterol/HDL Ratio 3.4, Thyroid Stimulating Hormone (TSH) 0.324L Current Medications Medications (Trade) Dose Ordered Sig/Teo Route PRN Reason Start Time Stop Time Status Last Admin Dose Admin Acetaminophen (Tylenol) 650 mg Q4H PRN ORAL fever 11/05/17 06:30 12/05/17 06:29 11/06/17 08:49 Al Hydroxide/Mg Hydroxide (Mylanta II) 30 ml Q6H PRN ORAL dyspepsia 11/05/17 06:30 12/05/17 06:29 Apixaban (Eliquis) 5 mg BID ORAL 11/05/17 09:00 12/05/17 08:59 11/06/17 08:46 Dextrose (Dextrose 50%) STAT PRN IV Hypoglycemia 11/05/17 06:30 12/05/17 06:29 Lansoprazole (Prevacid) 30 mg DAILY ORAL 11/05/17 19:00 12/05/17 18:59 11/06/17 08:45 Lorazepam (Ativan 2mg/ml 1ml) 0.5 mg Q4H PRN IV For Anxiety 11/05/17 06:30 11/12/17 06:29 Losartan Potassium (Cozaar) 50 mg DAILY ORAL 11/06/17 09:00 12/06/17 08:59 11/06/17 08:46 Ondansetron HCl (Zofran) 4 mg Q6H PRN IVP Nausea & Vomiting 11/05/17 06:30 12/05/17 06:29 Polyethylene Glycol (Miralax) 17 gm HSPRN PRN ORAL Constipation 11/05/17 06:30 12/05/17 06:29 Zolpidem Tartrate (Ambien) 5 mg HSPRN PRN ORAL Insomnia 11/05/17 06:30 11/12/17 06:29 Yolanda Faulkner MD Nov 06, 2017 12:42
[2017-11-06] MEDS ORDERED: COZAAR50 MG ORAL (12:43)
[2017-11-06] MEDS ORDERED: LANSOPRAZOLE30 MG ORAL (12:43)
--- NOTE | 2017-11-06 13:48 | Cardiology Report ---
APPROVED REPORT EKG Measurement Heart [id number] [place] 182P42 [id number] Normal sinus rhythm Normal ECG
--- NOTE | 2017-11-06 18:30 | Consultation ---
DATE OF CONSULTATION: 11/05/2017 CARDIOLOGY CONSULTATION CONSULTING PHYSICIAN: Edward Mireles M.D. REFERRING PHYSICIAN: Yolanda Faulkner M.D. REASON FOR REFERRAL: Chest pain. HISTORY OF PRESENT ILLNESS: This is a middle-aged female, who has been to this hospital before the patient has had pulmonary embolism not too long ago who presents to the hospital because of recurrent chest pain. The pain is all day on Sunday yesterday, was getting worse throughout the course of the day. She tried to sleep but she was very apprehensive and concerned. Because of her symptoms and because she was feeling dizzy as well so she presented to the emergency room and she has been admitted to the hospital for further evaluation. She has had the pain intermittently today as well. The pain is in the center of the chest, described as tightness, initially constant, present now intermittent in nature. She does not have any shortness of breath. No PND. No orthopnea. No palpitation. No dyspnea on exertion. She has not noticed any relieving or exacerbating factors during the time of chest pain. She has been walking around without any discomfort around her house being worsened. PAST MEDICAL HISTORY: Positive for history of multiple pulmonary emboli, recent history of obesity, recent history of oral contraceptive use. 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 ALLERGIES: She is not allergic to any medications. SOCIAL HISTORY: Drinks wine on a regular basis. Does not smoke. Does not drink. 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 REVIEW OF SYSTEMS: GASTROINTESTINAL: She has some nausea earlier but none now. GENITOURINARY: Negative. PULMONARY: Negative. CONSTITUTIONAL: Negative. NEUROLOGIC: Negative. PHYSICAL EXAMINATION: GENERAL: Middle-aged female, in no respiratory distress. HEENT: Unremarkable. NECK: Supple. No jugular venous distention. 02:27 LUNGS: Clear to auscultation and percussion. CARDIAC: S1 is normal. S2 is normal. Regular rate and rhythm. No heaves, thrills, or gallops noted. ABDOMEN: Soft, obese. Positive bowel sounds. Nontender. EXTREMITIES: There is no clubbing, cyanosis, nor is there any edema. NEUROLOGIC: She is awake, alert, responsive, in no apparent distress. LABORATORY AND DIAGNOSTIC DATA: White count is 6.8, hemoglobin 10.1, and platelet count of 483. Sodium is 139, potassium 3.6, chloride 104, bicarb 29, BUN 14, creatinine 0.9, glucose of 109. Calcium is 8.5. All troponins are negative. Lipase of 241. Chest x-ray was read as no acute processes. Venous duplex study shows a patent venous flow, no evidence 03:25 femoral or tibial segment. She has had an echocardiogram that appears to show normal wall motion, ejection fraction 60% 03:35 my report. Her electrocardiogram shows no ST-T wave abnormalities. ASSESSMENT AND PLAN: 1. Atypical chest pain. 2. Recent history of pulmonary embolism secondary to oral contraceptive use. 3. Obesity. Dr. Faulkner, this patient was seen at the request for cardiac consultation 03:51 factors are not suggestive of coronary syndrome. Her cardiac enzymes are all negative despite having multiple hours of chest pain on Sunday. It is possible that her symptoms are GI related. She did feel somewhat symptomatic today after eating dinner. I would recommend trial of proton pump inhibitors and 04:20 and will follow up as an outpatient by her usual physician. If there are any exacerbating factors on activity then she should be considered for stress testing in the future. Edward Mireles M.D. DR: Tiffanie JOB#: [id number] CC:
--- NOTE | 2017-11-07 09:26 | Discharge Summary ---
Discharge Summary Discharge Summary _ DATE OF ADMISSION: 11/05/2017 DATE OF DISCHARGE: 11/06/2017 REASON FOR ADMISSION: 47 years old female with past medical history significant for hypertension and recently diagnosed pulmonary emboli, on anticoagulation with Eliquis, presented to emergency department with acute onset of chest pain, pressure-like. Upon evaluation in emergency department vital signs were stable. Troponin was negative. Chest x-ray revealed no acute cardiopulmonary pathology. EKG revealed normal sinus rhythm, no acute ischemic changes ProBNP 14. Patient was admitted to telemetry floor for further management with diagnosis of chest pain, recent history of PE , rule out acute coronary syndrome, hypertension. CONSULTANTS: continuous improvement specialist Dr. Keita [facility] COURSE: Patient admitted to telemetry floor. Cardiology consult was requested. Serial troponin 3 were negative. EKG revealed no acute ischemic changes. Patient was ruled out for acute NH. Patient was started on aspirin. Nitroglycerin was ordered as needed for chest pain. Lipid panel revealed elevated LDL of 112. Patient was educated on therapeutic lifestyle changes and low fat low cholesterol diet. Consider statin per primary care provider discretion. Blood pressure was managed with current medication regimen and remained stable. Spinner [employer] recommended outpatient stress test. Per continuous improvement specialist, no indications for cardiac catheterization at that time. Eliquis was continued. No evidence of bleeding. Patient was on GI prophylaxis. Chest pain resolved. Pulse oximetry stable on room air. Patient was stable for discharge home with outpatient follow-up with primary care provider for outpatient stress test as per cardiology recommendations. Due to the rapid and unexpected improvement in patient'sb condition, patient was discharged in one day. FINAL DIAGNOSES: Chest painr ( ruled out fror acute NH) History of PE, on anticoagulation Hypertension Hypercholesterolemia DISCHARGE MEDICATIONS: See Medication Reconciliation list. DISCHARGE INSTRUCTIONS: Patient was discharged home; follow-up with a primary care provider in one week.. I have been assigned to dictate discharge summary for this account. I was not involved in the patient's management. Adriana Ruby NP Nov 07, 2017 09:26
--- NOTE | 2017-11-12 13:35 | Cardiology Report ---
APPROVED REPORT EKG Measurement Heart [id number] [id number] Normal sinus rhythm Normal ECG
--- NOTE | 2017-11-12 18:17 | Cardiology Report ---
APPROVED REPORT EXAM: Two-dimensional and M-mode echocardiogram with Doppler and color Doppler. INDICATION Left ventricular function M-Mode DIMENSIONS IVSd1.3 (0.7-1.1cm)Left Atrium (MM)4.0 (1.6-4.0cm) LVDd4.1 (3.5-5.6cm)Aortic Root3.2 (2.0-3.7cm) PWd1.3 (0.7-1.1cm)Aortic Cusp Exc.2.3 (1.5-2.0cm) LVDs2.5 (2.5-4.0cm) PWs1.6 cm Technically difficult study due to poor acoustic windows. Study quality precludes accurate assessment of regional wall motion. Normal left ventricular chamber size, systolic function and wall motion to extent visualized. Left ventricular ejection fraction estimated to be 60 %. Mild left ventricular hypertrophy. No evidence of pericardial effusion. All other cardiac chamber sizes are within normal limits. Focal aortic valve sclerosis with adequate cusp excursion. Thickened mitral valve leaflets with normal excursion. Mild mitral annulus and aortic root calcification. Pulmonic valve not well visualized. Normal tricuspid valve structure. Subcostal views not obtainable. A color flow and spectral Doppler study was performed and revealed: Mild aortic insufficiency. No mitral regurgitation. reduced left ventricular relaxation c/w impaired relaxation diastolic dysfunction. Trace tricuspid regurgitation. Tricuspid systolic velocities suggests peak right ventricular systolic pressure of 24 mmHg. Trace pulmonic regurgitation present.
--- NOTE | 2017-11-14 10:54 | Diagnostic Imaging Report ---
APPROVED REPORT CPT Code: 31328 Present Symptoms Comments: R/O DVT Technically difficult study due to vessel depth (mid-thigh and calf area). BILATERAL: Imaging reveals a patent deep venous system bilaterally. There is no evidence of thrombus within the femoral, popliteal or tibial segments. The greater saphenous veins are also within normal limits. Doppler indicates normal spontaneous flow within these segments.
--- NOTE | 2017-11-16 10:21 | Physician Query ---
--------- THIS DOCUMENT IS A PERMANENT PART OF THE MEDICAL RECORD --------- PLEASE COMPLETE THE DOCUMENT BEFORE SIGNING Dear Dr. SALAZAR Date: 11/16/2017 /Telecasting Engineer/CDS' Name: ZEYNEP CULVER, CCS, MEDICAL LAB SPECIALIST Exercise your independent professional judgment when responding to query. Questions asked do not imply particular answer is desired or expected. We greatly appreciate your clarification on this issue. REASON FOR ADMISSION: 47 years old female with past medical history significant for hypertension and recently diagnosed pulmonary emboli, on anticoagulation with Eliquis, presented to emergency department with acute onset of chest pain, pressure-like. Troponin was negative. Chest x-ray revealed no acute cardiopulmonary pathology. EKG revealed normal sinus rhythm, no acute ischemic changes ProBNP 14. Patient was admitted to telemetry floor for further management with diagnosis of chest pain, recent history of PE , rule out acute coronary syndrome, hypertension. CONSULTANTS:network lead Dr. Keita [facility]: Cardiology consult was requested. Serial troponin 3 were negative. EKG revealed no acute ischemic changes. Patient was ruled out for acute IL. Patient was started on aspirin. Nitroglycerin was ordered as needed for chest pain. Lipid panel revealed elevated LDL of 112. No evidence of bleeding. Patient was on GI prophylaxis.Chest pain resolved. FINAL DIAGNOSES: Chest pain ( ruled out for acute IL) History of PE, on anticoagulation, Hypertension, Hypercholesterolemia Please document the suspected etiology of Chest Pain: a.Type: []Cardiac []Non-cardiac []Unspecified b.Etiology - cardiac [] Aortic dissection []Mitral valve prolapsed [] Acute myocardial infarction []Spasm of coronary arteries [] Coronary Artery Disease []Pericarditis c.Etiology - non-cardiac [] Anxiety []Pleurisy [] Cancer []Pneumonia, type [] Costochondritis []Pneumothorax [] GERD/Esophagitis []Pulmonary embolism [] Unable to determine []Other: Hazel GRECO & EBONY CUMMINGS
== END 2017-11-06 16:30 | disposition home or self-care (01) | DRG 206 ==
LOC: EMR 01:25 → 2E 05:31 → EDBEDREQ 06:32
DX: M94.0 Chondrocostal junction syndrome [Tietze] (principal); Z68.41 Body mass index [BMI] 40.0-44.9, adult; I10 Essential (primary) hypertension; M19.079 Primary osteoarthritis, unspecified ankle and foot; E66.9 Obesity, unspecified; E78.00 Pure hypercholesterolemia, unspecified; Z86.711 Personal history of pulmonary embolism; K21.9 Gastro-esophageal reflux disease without esophagitis
CPT/HCPCS: 36415; 71045; 80053; 80061; 82550; 82553; 83690; 83880; 84443; 84484; 85025; 85610; 85730; 87081; 93005; 93306; 93970; 96374; 96375; 99283

== ENCOUNTER 2018-07-14 13:53 | Emergency (ER) | payer OTHER ==
[~2018-07-14] VITALS: Ht 172.7 cm; Wt 123.8 kg
[~2018-07-14 13:53] MED LIST changes: +COZAAR50 MG ORAL; +ELIQUIS5 MG PO; +LANSOPRAZOLE30 MG ORAL
--- NOTE | 2018-07-14 14:15 | NUR ---
ED Nurse Note: patient walked in by her self with unsteady gait, complaining of generalized weakness, discomfort in lower extremity and pain in her LLQ ob the back. pt. was placed in gown and connected to the monitor. AAO x 4, skin is dry and intact. is at bedside.
--- NOTE | 2018-07-14 14:16 | Emergency Room Report ---
History of Present Illness General Chief Complaint: General Complaint Source: Patient Present Illness HPI Patient presents with complaints of swelling to her right leg Reports that she noticed this for the past 7-10 days Patient reports that she had a history of DVT in the same leg and blood clot in her lungs This was about 10 months ago Patient has stopped taking her Eliquis Denies any chest pain denies any shortness of breath denies any pleurisy patient reports that she had an ultrasound last about 2 months ago on the right leg which was clear Patient reports that she also had repeat imaging of her chest which was clear regarding any blood clots Denies any abdominal pain patient also complained of left lower discomfort over the past several weeks Worse with standing Allergies: Coded Allergies: [place] (Verified Allergy, Unknown, 07/14/18) Patient History Past Medical History: see triage record Pertinent Family History: none Reviewed Nursing Documentation: PMH: Agreed; PSxH: Agreed Nursing Documentation-PMH Hx Hypertension: Yes Hx Cancer: No Hx Gastrointestinal Problems: No Hx Neurological Problems: No Review of Systems All Other Systems: negative except mentioned in HPI Physical Exam Vital Signs Date Time Temp Pulse Resp B/P (MAP) Pulse Ox O2 Delivery O2 Flow Rate FiO2 07/14/18 14:00 98.8 91 19 157/78 99 Room Air Sp02 EP Interpretation: reviewed, normal General Appearance: well appearing, no apparent distress Head: normocephalic, atraumatic Eyes: bilateral eye PERRL, bilateral eye EOMI ENT: hearing grossly normal, normal pharynx, TMs + canals normal, uvula midline Neck: full range of motion, supple, no meningismus, no bony tend Respiratory: lungs clear, normal breath sounds, no rhonchi, no respiratory distress, no retraction, no accessory muscle use Cardiovascular #1: normal peripheral pulses, regular rate, rhythm, no gallop, no JVD, no murmur Gastrointestinal: normal bowel sounds, non tender, soft, no mass, no organomegaly, non-distended, no guarding, no hernia, no pulsatile mass, no rebound Genitourinary: no CVA tenderness Musculoskeletal: normal inspection, other - Some tenderness over the left posterior superior iliac crest region, no midline tenderness Neurologic: oriented x3, responsive, railcar switcher III-XII nml as tested, motor strength/ tone normal, sensory intact Psychiatric: mood/affect normal Skin: normal color, warm/dry, other - Some increased swelling on the right leg compared to the left side just below the calf region nontender on palpation upper leg does not appear edematous or erythematous Lymphatic: normal inspection, no adenopathy Medical Decision Making Diagnostic Impression: Primary Impression: Edema Additional Impression: UTI (urinary tract infection) ER Course Given the patient's history exam and presentation multiple differentials considered Patient does not have any chest pain or shortness of breath Given her pertinent history ultrasound was obtained of the right lower leg this was negative urine sample shows leukocytes and bacteria Patient is treated with UTI Patient does not appear septic or toxic On further review of records patient has had extensive workup and admission to this hospital as well with pulmonary embolism Patient reports that she has Eliquis and is starting a today And will follow closely Labs Test 07/14/18 15:33 Urine Color Yellow Urine Appearance Clear Urine pH 6.5 (4.5-8.0) Urine Specific [place] 1.010 (1.005-1.035) Urine Protein 1+ (NEGATIVE) Urine Glucose (UA) Negative (NEGATIVE) Urine Ketones Negative (NEGATIVE) Urine Blood Negative (NEGATIVE) Urine Nitrite Negative (NEGATIVE) Urine Bilirubin Negative (NEGATIVE) Urine Urobilinogen 1 MG/DL (0.0-1.0) Urine Leukocyte Esterase 3+ (NEGATIVE) Urine RBC 0-2 /HPF (0 - 2) Urine WBC 10-15 /HPF (0 - 2) Urine Squamous Epithelial Cells Occasional /LPF Urine Bacteria Moderate /HPF (NONE) Rhythm Strip Diag. Results EP Interpretation: yes Rate: 70 Rhythm: NSR, no PVC's, no ectopy CT/MRI/US Diagnostic Results CT/MRI/US Diagnostic Results : Impression venous ultrasound negative for DVT Last Vital Signs Date Time Temp Pulse Resp B/P (MAP) Pulse Ox O2 Delivery O2 Flow Rate FiO2 07/14/18 14:00 98.8 91 19 157/78 99 Room Air Status: improved Disposition: HOME, SELF-CARE Condition: Improved Scripts Nitrofurantoin Monohyd/M-Cryst* (MACROBID 100 MG*) 100 Mg Capsule 100 MG ORAL EVERY 12 HOURS for 7 Days, CAP Prov: Elie Garza DO 07/14/18 Additional Instructions: Patient is provided with the discharge instructions notified to follow up with primary doctor in the next 2-3 days otherwise return to the er with any worsening symptoms. Please note that this report is being documented using DRAGON technology. This can lead to erroneous entry secondary to incorrect interpretation by the dictating instrument. Elie Garza DO Jul 14, 2018 14:16
[2018-07-14 14:20] VITALS: BP 149/82
[2018-07-14 15:51] LABS: APPEARANCE,URINE CLEAR; BILIRUBIN, URINE NEGATIVE (NEGATIVE); GLUCOSE, URINE (UA) NEGATIVE (NEGATIVE); KETONES,URINE NEGATIVE (NEGATIVE); LEUKOCYTE ESTERASE ,URINE 3+ (NEGATIVE); NITRITE,URINE NEGATIVE (NEGATIVE); PH,URINE 6.5 (4.5-8.0); PROTEIN,URINE 1+ (NEGATIVE); UROBILINOGEN,URINE 1 MG/DL (0.0-1.0)
[2018-07-14 15:53] LABS: COLOR,URINE YELLOW
[2018-07-14 15:54] VITALS: BP 148/87
--- NOTE | 2018-07-14 16:01 | NUR ---
vascular carline is by bed side doing ultrasound
[2018-07-14] MEDS ORDERED: NITROFURANTOIN100 M2 ORAL (16:37)
[2018-07-14 16:45] VITALS: BP 166/92
--- NOTE | 2018-07-14 16:50 | NUR ---
ED Nurse Note: patient DC home, has UTI and was prescribed antibiotic by . AAO x 4, has steady gait, leaving ED with spouse.
== END 2018-07-14 16:53 | disposition home or self-care (01) ==
LOC: EMR 14:51
DX: R60.0 Localized edema (principal); N39.0 Urinary tract infection, site not specified; I10 Essential (primary) hypertension
CPT/HCPCS: 81003; 87086; 93971; 99283